=== PATIENT | male | born 1980 | race Caucasian/White ===

== ENCOUNTER 2023-09-29 07:06 | Emergency (ER) | payer BC, SELFPAY ==
[2023-09-29] VITALS (36 sets, daily range): BP systolic 139–195; BP diastolic 95–128; PULSE 69–93; RESP 16–18; TEMP 36.6; O2SAT 92–97; BMI 32.8
--- NOTE | 2023-09-29 07:41 | CRLHL7_ITS ---
For Patients: As a result of the Century Cures Act, medical imaging exams and procedure reports are released immediately into your electronic medical record. You may view this report before your referring provider. If you have questions, please contact your health care provider. Indication: Chest pain Technique: Chest 2 views Comparison: None Findings/Impression: Cardiovascular and mediastinum: Heart size and vasculature are normal in caliber and appearance. Mediastinum is within normal limits. Lungs and pleural spaces: Lungs are clear. No sign of infiltrate or mass. No sign of pleural effusion. No pneumothorax. Bones and soft tissues: No significant findings. Dictated by North Dasilva MD @ 09/29/2023 8:01:25 AM (Electronically Signed)
--- NOTE | 2023-09-29 07:44 | ED_ITS ---
HPI - General Adult General Chief complaint: Shortness of Breath/Dyspnea <Angie Borrego MD - Last Filed: 09/30/23 08:43> Stated complaint: shortness of breath <Angie Borrego MD - Last Filed: 09/30/23 08:43> Time Seen by Provider: 09/29/23 07:30 <Angie Borrego MD - Last Filed: 09/30/23 08:43> Source: patient <Angie Borrego MD - Last Filed: 09/30/23 08:43> Mode of arrival: ambulatory <Angie Borrego MD - Last Filed: 09/30/23 08:43> Limitations: no limitations <Angie Borrego MD - Last Filed: 09/30/23 08:43> History of Present Illness HPI narrative: 43-year-old male with no prior cardiac history presents to the emergency department for evaluation of left-sided chest pain accompanied by shortness of breath and radiation into the left shoulder and arm area that started about 30 minutes prior to arrival. Patient reports that he woke normally and prepped for work. He was working when he initially noted a sensation of burning in his throat. He stopped his activity and attempted to drink some water. With this, the pain then began radiating into the left chest and then into the arm. It was accompanied by shoulder tightness and a sweating sensation. No prior history of similar symptoms. His work is not heavily exertional, just some simple wrenching and light activity. He does smoke. He denies a history of hypertension. Admittedly, he does not go to the doctor in is unaware if he has any history of high cholesterol. 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 He reports a surgery to remove that portion of the diaphragm which improved his dyspnea. He states that he has had some pulmonary function testing showing shortness of breath and was given inhaler that he does not use. This has been a few years. He does continue to smoke. He did not try taking any medication or other interventions prior to coming to the ED today. Currently rating the pain is 4/10, the s weating has improved. No prior stress test or echo. No history of DVT or PE, no anticoagulant use. His only home medication is sildenafil which he has not used in the last few days. Does have a family history of heart disease but not premature ages. Past medical history notable for the cervical rib removal and then subsequent phrenic nerve injury and diaphragm procedure. Smoking and reported COPD not on treatment. Denies other long-term health problems. Denies allergies. ROS is notable for the generalized and cardiac symptoms as described above, otherwise denies times 12 systems. <Angie Borrego MD - Last Filed: 09/30/23 08:43> Related Data Home medications: Home Medications Medication Instructions Recorded Confirmed umeclidinium 62.5 mcg-vilanterol 1 ea inhalation DAILY 09/29/23 09/29/23 25 mcg/actuation powdr for inhalation (Anoro Ellipta) Previous Rx's Medication Instructions Recorded sildenafil 100 mg tablet 50 - 100 mg (0.5 - 1 x 100 mg) PO 05/11/22 QDAY PRN sexual activity #30 tabs <Angie Borrego MD - Last Filed: 09/30/23 08:43> Allergies/adverse reactions: Allergies Allergy/AdvReac Type Severity Reaction Status Date / Time No Known Drug Allergies Allergy Verified 09/29/23 07:13 <Angie Borrego MD - Last Filed: 09/30/23 08:43> [facility] Medical History: Medical History 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) Erectile dysfunction ?N52.9 - Male erectile dysfunction, unspecified (ICD-10) <Angie Borrego MD - Last Filed: 09/30/23 08:43> Social History: Social History Smoking Status: Current every day smoker What tobacco products do you use: cigarettes Smoking packs per day: 1 Smoking cigarettes per day: 20.0 Years smoked: 30 Smoking pack-years: 30.00 Second hand tobacco smoke exposure: No <Angie Borrego MD - Last Filed: 09/30/23 08:43> Exam Const: Vital Signs, click to edit/add: Vital Signs - 24 hr 09/29/23 08:45 09/29/23 08:46 09/29/23 08:51 Temperature Pulse Rate 79 81 83 Respiratory Rate 16 Blood Pressure 154/102 H 159/105 H Pulse Oximetry 94 93 95 09/29/23 08:56 09/29/23 09:00 09/29/23 09:01 Temperature Pulse Rate 81 80 82 Respiratory Rate Blood Pressure 163/105 H 169/109 H Pulse Oximetry 93 93 92 09/29/23 09:08 09/29/23 09:15 09/29/23 09:30 Temperature Pulse Rate 75 76 Respiratory Rate Blood Pressure 170/115 H Pulse Oximetry 95 95 09/29/23 09:31 09/29/23 09:45 09/29/23 10:00 Temperature Pulse Rate 75 72 83 Respiratory Rate 16 Blood Pressure 155/95 H Pulse Oximetry 94 96 96 09/29/23 10:01 09/29/23 10:15 09/29/23 10:30 Temperature Pulse Rate 82 83 79 Respiratory Rate Blood Pressure 155/102 H Pulse Oximetry 96 96 95 09/29/23 10:31 09/29/23 10:45 09/29/23 10:56 Temperature Pulse Rate 80 89 78 Respiratory Rate Blood Pressure 153/96 H 153/104 H Pulse Oximetry 95 95 96 09/29/23 11:00 09/29/23 11:02 09/29/23 11:03 Temperature 97.8 F Pulse Rate 74 69 74 Respiratory Rate 16 Blood Pressure 155/105 H Pulse Oximetry 97 97 97 09/29/23 11:07 09/29/23 11:12 09/29/23 11:15 Temperature Pulse Rate 71 74 73 Respiratory Rate Blood Pressure 163/100 H 156/110 H Pulse Oximetry 95 95 96 09/29/23 11:16 Temperature Pulse Rate 73 Respiratory Rate Blood Pressure 147/98 H Pulse Oximetry 95 <Angie Borrego MD - Last Filed: 09/30/23 08:43> Vital Signs, click to edit/add: Vital Signs - 24 hr 09/29/23 08:45 09/29/23 08:46 09/29/23 08:51 Temperature Pulse Rate 79 81 83 Respiratory Rate 16 Blood Pressure 154/102 H 159/105 H Pulse Oximetry 94 93 95 09/29/23 08:56 09/29/23 09:00 09/29/23 09:01 Temperature Pulse Rate 81 80 82 Respiratory Rate Blood Pressure 163/105 H 169/109 H Pulse Oximetry 93 93 92 09/29/23 09:08 09/29/23 09:15 09/29/23 09:30 Temperature Pulse Rate 75 76 Respiratory Rate Blood Pressure 170/115 H Pulse Oximetry 95 95 09/29/23 09:31 09/29/23 09:45 09/29/23 10:00 Temperature Pulse Rate 75 72 83 Respiratory Rate 16 Blood Pressure 155/95 H Pulse Oximetry 94 96 96 09/29/23 10:01 09/29/23 10:15 09/29/23 10:30 Temperature Pulse Rate 82 83 79 Respiratory Rate Blood Pressure 155/102 H Pulse Oximetry 96 96 95 09/29/23 10:31 09/29/23 10:45 09/29/23 10:56 Temperature Pulse Rate 80 89 78 Respiratory Rate Blood Pressure 153/96 H 153/104 H Pulse Oximetry 95 95 96 09/29/23 11:00 09/29/23 11:02 09/29/23 11:03 Temperature 97.8 F Pulse Rate 74 69 74 Respiratory Rate 16 Blood Pressure 155/105 H Pulse Oximetry 97 97 97 09/29/23 11:07 09/29/23 11:12 09/29/23 11:15 Temperature Pulse Rate 71 74 73 Respiratory Rate Blood Pressure 163/100 H 156/110 H Pulse Oximetry 95 95 96 09/29/23 11:16 Temperature Pulse Rate 73 Respiratory Rate Blood Pressure 147/98 H Pulse Oximetry 95 <Radha Duran MD - Last Filed: 09/29/23 14:13> Documenting provider has reviewed patient's vital signs: yes <Angie waldrop MD - Last Filed: 09/30/23 08:43> Common normals: no apparent distress <Angie Borrego MD - Last Filed: 09/30/23 08:43> General appearance: cooperative, comfortable and well kempt <Angie Borrego MD - Last Filed: 09/30/23 08:43> HENMT: Common normals: normocephalic <Angie Borrego MD - Last Filed: 09/30/23 08:43> Head and scalp: normocephalic <MD Becky Waller Last Filed: 09/30/23 08:43> Mouth: oral and palatal mucosa normal <MD Becky Waller Last Filed: 09/30/23 08:43> Throat: posterior oropharynx normal <MD Becky Waller Last Filed: 09/30/23 08:43> Eye: Common normals: conjunctivae normal <MD Becky Waller Last Filed: 09/30/23 08:43> General eye: normal appearance of both eyes <MD Becky Waller Last Filed: 09/30/23 08:43> Conjunctiva: conjunctiva(e) normal <MD Becky Waller Last Filed: 09/30/23 08:43> Neck & C-Spine: Common normals: no lymphadenopathy <MD Becky Waller Last Filed: 09/30/23 08:43> General: normal visual inspection <MD Becky Waller Last Filed: 09/30/23 08:43> Chest: Common normals: inspection of chest normal and palpation of chest normal <MD Becky Waller Last Filed: 09/30/23 08:43> Resp: Common normals: normal respiratory effort and no use of accessory muscles <MD Becky Waller Last Filed: 09/30/23 08:43> Effort & inspection: able to speak in complete sentences <MD Becky Waller Last Filed: 09/30/23 08:43> Other: Mild expiratory wheeze with normal effort. Good air entry in all lung bernard <MD Becky Waller Last Filed: 09/30/23 08:43> Cardio: Common normals: regular rate, regular rhythm, S1 normal heart sound, S2 normal heart sound and no murmurs <MD Becky Waller Last Filed: 09/30/23 08:43> Rate: regular rate <MD Becky Waller Last Filed: 09/30/23 08:43> Rhythm: regular rhythm <MD Becky Waller Last Filed: 09/30/23 08:43> Heart sounds: S1 normal and S2 normal <MD Becky Waller Last Filed: 09/30/23 08:43> GI: Common normals: Normal to inspection, nondistended, normoactive bowel sounds present, soft to palpation, non-tender, no hepatosplenomegaly and no masses <MD Becky Waller Last Filed: 09/30/23 08:43> Palpation: soft and no hepatosplenomegaly <MD Becky Waller Last Filed: 09/30/23 08:43> Extremity: Common normals: normal to inspection and no pedal edema <MD Becky Waller Last Filed: 09/30/23 08:43> Neuro: Speech: speech normal <MD Becky Waller Last Filed: 09/30/23 08:43> Motor exam: no movement abnormalities noted <MD Becky Waller Last Filed: 09/30/23 08:43> Psych: Appearance: well kempt <MD Becky Waller Last Filed: 09/30/23 08:43> Attitude: engaged <MD Becky Waller Last Filed: 09/30/23 08:43> Activity/motor behavior: appropriate eye contact <MD Becky Waller Last Filed: 09/30/23 08:43> Insight: insight good <MD Becky Waller Last Filed: 09/30/23 08:43> Judgement: judgment good <MD Becky Waller Last Filed: 09/30/23 08:43> Skin: Common normals: no rashes or lesions noted <MD Becky Waller Last Filed: 09/30/23 08:43> General skin exam: no rashes or lesions noted <MD eBcky Waller Last Filed: 09/30/23 08:43> Course Course ED Course: 43-year-old male with chest pain suspicious for acute coronary syndrome. Risk factors include smoking in family history. Likely does have underlying hypertension, unknown if hyperlipidemia. Recommend monitor and storage bin tender, EKG, troponin, chest x-ray and typical labs. Repeat troponin in 2 hours if initial is negative. Will require primary care follow-up regarding elevated blood pressure and would likely benefit from stress test. <Angie Borrego MD - Last Filed: 09/30/23 08:43> 43-year-old male with chest pain suspicious for acute coronary syndrome. Risk factors include smoking in family history. Likely does have underlying hypertension, unknown if hyperlipidemia. Recommend monitor and storage bin tender, EKG, troponin, chest x-ray and typical labs. Repeat troponin in 2 hours if initial is negative. Will require primary care follow-up regarding elevated blood pressure and would likely benefit from stress test. I took over this patient from Dr. Borrego. Initial troponin was 0. I repeated an EKG. He has Q-waves in leads 2 3 and F as well as the 3 through V6, T-waves are commensurate with R-waves, though I do note on the repeat EKG that I did that his T-waves are slightly smaller than on previous. His chest x-ray is unremarkable. His other labs show white blood cell count of 12.3, hemoglobin of 15.8. Coags unremarkable. D-dimer was less than 0.27, electrolytes normal. Blood sugar was 188. COVID negative. Repeat troponin, point of care was 0.14, we jose a lab troponin as well, this was reported to me as 0.91 but in fact is 0.19. He had sublingual nitroglycerin x3 with improvement but not resolution in his pain. I recommended morphine but initially he declined. Ultimately he did agree to morphine and now says he is pain-free. He had aspirin on arrival. On receipt of the elevated 2nd troponin I started heparin, weight based bolus and drip. I paged Cardiology, took approximately 45 minutes to here back but they will accept him at [facility] as an ER to ER transfer. Per cardiology recommendation I have given him rosuvastatin, metoprolol 5 mg IV as well as 25 mg orally for ongoing hypertension. Nicotine patch ordered as well. <Radha Duran MD - Last Filed: 09/29/23 14:13> Vital Signs Vital signs: Initial Vital Signs Temperature 97.9 F 09/29/23 07:08 Temperature Source Temporal Artery Scan 09/29/23 07:08 Pulse Rate 90 09/29/23 07:08 Respiratory Rate 18 09/29/23 07:08 Respiratory Effort Spontaneous, Short of Breath 09/29/23 07:08 Respiratory Depth Normal 09/29/23 07:08 Respiratory Pattern Normal 09/29/23 07:08 Blood Pressure 195/128 H 09/29/23 07:08 Blood Pressure Mean 150 H 09/29/23 07:08 Blood Pressure Position Sitting 09/29/23 07:08 Pulse Oximetry 96 09/29/23 07:08 Oxygen Delivery Method Room Air 09/29/23 07:08 Vital Signs Temperature 97.9 F 09/29/23 07:08 Pulse Rate 90 09/29/23 07:08 Respiratory Rate 18 09/29/23 07:08 Blood Pressure 195/128 H 09/29/23 07:08 Pulse Oximetry 96 09/29/23 07:08 Oxygen Delivery Method Room Air 09/29/23 07:08 Temperature 97.8 F 09/29/23 11:02 Pulse Rate 73 09/29/23 11:16 Respiratory Rate 16 09/29/23 11:02 Blood Pressure 147/98 H 09/29/23 11:16 Pulse Oximetry 95 09/29/23 11:16 Oxygen Delivery Method Room Air 09/29/23 08:31 <Angie Borrego MD - Last Filed: 09/30/23 08:43> Initial Vital Signs Temperature 97.9 F 09/29/23 07:08 Temperature Source Temporal Artery Scan 09/29/23 07:08 Pulse Rate 90 09/29/23 07:08 Respiratory Rate 18 09/29/23 07:08 Respiratory Effort Spontaneous, Short of Breath 09/29/23 07:08 Respiratory Depth Normal 09/29/23 07:08 Respiratory Pattern Normal 09/29/23 07:08 Blood Pressure 195/128 H 09/29/23 07:08 Blood Pressure Mean 150 H 09/29/23 07:08 Blood Pressure Position Sitting 09/29/23 07:08 Pulse Oximetry 96 09/29/23 07:08 Oxygen Delivery Method Room Air 09/29/23 07:08 Vital Signs Temperature 97.9 F 09/29/23 07:08 Pulse Rate 90 09/29/23 07:08 Respiratory Rate 18 09/29/23 07:08 Blood Pressure 195/128 H 09/29/23 07:08 Pulse Oximetry 96 09/29/23 07:08 Oxygen Delivery Method Room Air 09/29/23 07:08 Temperature 97.8 F 09/29/23 11:02 Pulse Rate 73 09/29/23 11:16 Respiratory Rate 16 09/29/23 11:02 Blood Pressure 147/98 H 09/29/23 11:16 Pulse Oximetry 95 09/29/23 11:16 Oxygen Delivery Method Room Air 09/29/23 08:31 <Radha Duran MD - Last Filed: 09/29/23 14:13> Medications Administered Medications: Discontinued Medications Generic Name Dose Route Start Last Admin Trade Name Freq PRN Reason Stop Dose Admin Aspirin 324 mg 09/29/23 07:41 09/29/23 07:52 Aspirin 81 Mg Tab.Chew PO 09/29/23 07:42 324 mg ONCE ONE Administration Heparin Sodium (Porcine) 4,000 unit 09/29/23 09:54 09/29/23 10:05 Heparin 5,000 Unit/0.5 Ml Inj IVP 09/29/23 09:55 4,000 unit ONCE ONE Administration Heparin Sodium/Dextrose 25,000 unit in 500 mls @ 0 mls/hr 09/29/23 10:00 09/29/23 10:05 Heparin IV 1,000 unit/hr .Q0M BHAVANI 20 mls/hr Administration Protocol Per Protocol Metoprolol Succinate 25 mg 09/29/23 10:39 09/29/23 10:48 Metoprolol Succinate (Xl) 25 Mg Tab PO 09/29/23 10:40 25 mg ONCE ONE Administration Metoprolol Tartrate 5 mg 09/29/23 10:36 09/29/23 10:48 Metoprolol Tartrate 1 Mg/Ml Inj IVP 09/29/23 10:37 5 mg ONCE ONE Administration Morphine Sulfate 4 mg 09/29/23 08:57 09/29/23 10:05 Morphine 4 Mg/Ml Inj IVP 09/29/23 08:58 4 mg ONCE ONE Administration Nicotine 1 patch 09/29/23 11:15 09/29/23 11:18 Nicotine 21 Mg Patch TRANSDERMA 1 patch Q24H BHAVANI Administration Nitroglycerin 0.4 mg 09/29/23 07:41 09/29/23 07:54 Nitroglycerin 0.4 Mg Tab.Subl SUBLINGUAL 09/29/23 07:42 0.4 mg ONCE ONE Administration Nitroglycerin 0.4 mg 09/29/23 08:27 09/29/23 08:29 Nitroglycerin 0.4 Mg Tab.Subl SUBLINGUAL 0.4 mg Q5M PRN Administration Rosuvastatin Calcium 10 mg 09/29/23 10:38 09/29/23 10:48 Rosuvastatin Calcium 10 Mg Tablet PO 09/29/23 10:39 10 mg ONCE ONE Administration <Angie Borrego MD - Last Filed: 09/30/23 08:43> Discontinued Medications Generic Name Dose Route Start Last Admin Trade Name Freq PRN Reason Stop Dose Admin Aspirin 324 mg 09/29/23 07:41 09/29/23 07:52 Aspirin 81 Mg Tab.Chew PO 09/29/23 07:42 324 mg ONCE ONE Administration Heparin Sodium (Porcine) 4,000 unit 09/29/23 09:54 09/29/23 10:05 Heparin 5,000 Unit/0.5 Ml Inj IVP 09/29/23 09:55 4,000 unit ONCE ONE Administration Heparin Sodium/Dextrose 25,000 unit in 500 mls @ 0 mls/hr 09/29/23 10:00 09/29/23 10:05 Heparin IV 1,000 unit/hr .Q0M BHAVANI 20 mls/hr Administration Protocol Per Protocol Metoprolol Succinate 25 mg 09/29/23 10:39 09/29/23 10:48 Metoprolol Succinate (Xl) 25 Mg Tab PO 09/29/23 10:40 25 mg ONCE ONE Administration Metoprolol Tartrate 5 mg 09/29/23 10:36 09/29/23 10:48 Metoprolol Tartrate 1 Mg/Ml Inj IVP 09/29/23 10:37 5 mg ONCE ONE Administration Morphine Sulfate 4 mg 09/29/23 08:57 09/29/23 10:05 Morphine 4 Mg/Ml Inj IVP 09/29/23 08:58 4 mg ONCE ONE Administration Nicotine 1 patch 09/29/23 11:15 09/29/23 11:18 Nicotine 21 Mg Patch TRANSDERMA 1 patch Q24H BHAVANI Administration Nitroglycerin 0.4 mg 09/29/23 07:41 09/29/23 07:54 Nitroglycerin 0.4 Mg Tab.Subl SUBLINGUAL 09/29/23 07:42 0.4 mg ONCE ONE Administration Nitroglycerin 0.4 mg 09/29/23 08:27 09/29/23 08:29 Nitroglycerin 0.4 Mg Tab.Subl SUBLINGUAL 0.4 mg Q5M PRN Administration Rosuvastatin Calcium 10 mg 09/29/23 10:38 09/29/23 10:48 Rosuvastatin Calcium 10 Mg Tablet PO 09/29/23 10:39 10 mg ONCE ONE Administration <Radha Duran MD - Last Filed: 09/29/23 14:13> Medical Decision Making Lab Data Labs: Lab Results 09/29/23 09/29/23 09/29/23 Range/Units 07:25 08:58 09:30 WBC 12.28 H (4.50-11.00) K/uL RBC 5.04 (4.30-5.90) m/uL Hgb 15.8 (13.5-17.5) gm/dL Hct 46.7 (37.0-53.0) % MCV 93 (80-100) fL MCH 31 (26-34) pg MCHC 34 (32-36) gm/dL RDW Coeff of Pam 12.5 (11.5-15.5) % Plt Count 167 (140-440) K/uL Neut % (Auto) 72.5 H (42.0-72.0) % Lymph % (Auto) 18.6 L (20-44) % [place] % (Auto) 7.0 (0.0-11.0) % Eos % (Auto) 1.1 (0.0-7.0) % Baso % (Auto) 0.5 (0.0-3.0) % Neut # (Auto) 8.90 H (1.7-7.0) K/uL Lymph # (Auto) 2.30 (0.90-2.90) K/uL [place] # (Auto) 0.90 (0.00-0.90) K/UL Eos # (Auto) 0.10 (0.00-0.50) K/uL Baso # (Auto) 0.10 (0.00-0.30) K/uL Abs Immat Gran (auto) 0.00 (0.00-0.30) K/uL Imm/Tot Granulo (auto) 0.3 % INR 0.85 L (0.91-1.10) APTT 25 (23-33) Seconds D-Dimer Quant (PE/DVT) < 0.27 (0.00-0.50) ug/ml Sodium 137 (135-149) mmol/L Potassium 4.1 (3.6-5.1) mmol/L Chloride 103 (96-114) mmol/L Carbon Dioxide 26 (20-32) mmol/L Anion Gap 8 (7-15) mEq/L BUN 15 (5-24) mg/dL Creatinine 0.9 (0.5-1.5) mg/dL Estimated Creat Clear 110.39 Estimated GFR 107 ml/min Glucose 188 H (60-115) mg/dL Calcium 8.8 (8.4-10.6) mg/dL Total Bilirubin 0.9 (0.1-1.5) mg/dL AST 32 (12-35) U/L ALT 35 (4-50) U/L Alkaline Phosphatase 69 (40-150) U/L Troponin I 0.02 (0.01-0.04) ng/mL C-Reactive Protein 1.1 H (0.5-1.0) mg/dL Total Protein 7.2 (6.0-8.3) g/dL Albumin 4.6 (3.3-5.0) g/dL SARS-CoV-2 (PCR) Negative SARS-CoV-2 (Negative) Influenza Type A (PCR) Negative PCR FLU A (Negative) Influenza Type B (PCR) Negative PCR FLU B (Negative) RSV (PCR) Negative PCR RSV (Negative) POC Troponin I 0.01 0.14 H (0.01-0.04) ng/ml 09/29/23 Range/Units 09:45 WBC (4.50-11.00) K/uL RBC (4.30-5.90) m/uL Hgb (13.5-17.5) gm/dL Hct (37.0-53.0) % MCV (80-100) fL MCH (26-34) pg MCHC (32-36) gm/dL RDW Coeff of Pam (11.5-15.5) % Plt Count (140-440) K/uL Neut % (Auto) (42.0-72.0) % Lymph % (Auto) (20-44) % [place] % (Auto) (0.0-11.0) % Eos % (Auto) (0.0-7.0) % Baso % (Auto) (0.0-3.0) % Neut # (Auto) (1.7-7.0) K/uL Lymph # (Auto) (0.90-2.90) K/uL [place] # (Auto) (0.00-0.90) K/UL Eos # (Auto) (0.00-0.50) K/uL Baso # (Auto) (0.00-0.30) K/uL Abs Immat Gran (auto) (0.00-0.30) K/uL Imm/Tot Granulo (auto) % INR (0.91-1.10) APTT (23-33) Seconds D-Dimer Quant (PE/DVT) (0.00-0.50) ug/ml Sodium (135-149) mmol/L Potassium (3.6-5.1) mmol/L Chloride (96-114) mmol/L Carbon Dioxide (20-32) mmol/L Anion Gap (7-15) mEq/L BUN (5-24) mg/dL Creatinine (0.5-1.5) mg/dL Estimated Creat Clear Estimated GFR ml/min Glucose (60-115) mg/dL Calcium (8.4-10.6) mg/dL Total Bilirubin (0.1-1.5) mg/dL AST (12-35) U/L ALT (4-50) U/L Alkaline Phosphatase (40-150) U/L Troponin I 0.19 H* (0.01-0.04) ng/mL C-Reactive Protein (0.5-1.0) mg/dL Total Protein (6.0-8.3) g/dL Albumin (3.3-5.0) g/dL SARS-CoV-2 (PCR) (Negative) Influenza Type A (PCR) (Negative) Influenza Type B (PCR) (Negative) RSV (PCR) (Negative) POC Troponin I (0.01-0.04) ng/ml <Angie Borrego MD - Last Filed: 09/30/23 08:43> Lab Results 09/29/23 09/29/23 09/29/23 Range/Units 07:25 08:58 09:30 WBC 12.28 H (4.50-11.00) K/uL RBC 5.04 (4.30-5.90) m/uL Hgb 15.8 (13.5-17.5) gm/dL Hct 46.7 (37.0-53.0) % MCV 93 (80-100) fL MCH 31 (26-34) pg MCHC 34 (32-36) gm/dL RDW Coeff of Pam 12.5 (11.5-15.5) % Plt Count 167 (140-440) K/uL Neut % (Auto) 72.5 H (42.0-72.0) % Lymph % (Auto) 18.6 L (20-44) % [place] % (Auto) 7.0 (0.0-11.0) % Eos % (Auto) 1.1 (0.0-7.0) % Baso % (Auto) 0.5 (0.0-3.0) % Neut # (Auto) 8.90 H (1.7-7.0) K/uL Lymph # (Auto) 2.30 (0.90-2.90) K/uL [place] # (Auto) 0.90 (0.00-0.90) K/UL Eos # (Auto) 0.10 (0.00-0.50) K/uL Baso # (Auto) 0.10 (0.00-0.30) K/uL Abs Immat Gran (auto) 0.00 (0.00-0.30) K/uL Imm/Tot Granulo (auto) 0.3 % INR 0.85 L (0.91-1.10) APTT 25 (23-33) Seconds D-Dimer Quant (PE/DVT) < 0.27 (0.00-0.50) ug/ml Sodium 137 (135-149) mmol/L Potassium 4.1 (3.6-5.1) mmol/L Chloride 103 (96-114) mmol/L Carbon Dioxide 26 (20-32) mmol/L Anion Gap 8 (7-15) mEq/L BUN 15 (5-24) mg/dL Creatinine 0.9 (0.5-1.5) mg/dL Estimated Creat Clear 110.39 Estimated GFR 107 ml/min Glucose 188 H (60-115) mg/dL Calcium 8.8 (8.4-10.6) mg/dL Total Bilirubin 0.9 (0.1-1.5) mg/dL AST 32 (12-35) U/L ALT 35 (4-50) U/L Alkaline Phosphatase 69 (40-150) U/L Troponin I 0.02 (0.01-0.04) ng/mL C-Reactive Protein 1.1 H (0.5-1.0) mg/dL Total Protein 7.2 (6.0-8.3) g/dL Albumin 4.6 (3.3-5.0) g/dL SARS-CoV-2 (PCR) Negative SARS-CoV-2 (Negative) Influenza Type A (PCR) Negative PCR FLU A (Negative) Influenza Type B (PCR) Negative PCR FLU B (Negative) RSV (PCR) Negative PCR RSV (Negative) POC Troponin I 0.01 0.14 H (0.01-0.04) ng/ml 09/29/23 Range/Units 09:45 WBC (4.50-11.00) K/uL RBC (4.30-5.90) m/uL Hgb (13.5-17.5) gm/dL Hct (37.0-53.0) % MCV (80-100) fL MCH (26-34) pg MCHC (32-36) gm/dL RDW Coeff of Pam (11.5-15.5) % Plt Count (140-440) K/uL Neut % (Auto) (42.0-72.0) % Lymph % (Auto) (20-44) % [place] % (Auto) (0.0-11.0) % Eos % (Auto) (0.0-7.0) % Baso % (Auto) (0.0-3.0) % Neut # (Auto) (1.7-7.0) K/uL Lymph # (Auto) (0.90-2.90) K/uL [place] # (Auto) (0.00-0.90) K/UL Eos # (Auto) (0.00-0.50) K/uL Baso # (Auto) (0.00-0.30) K/uL Abs Immat Gran (auto) (0.00-0.30) K/uL Imm/Tot Granulo (auto) % INR (0.91-1.10) APTT (23-33) Seconds D-Dimer Quant (PE/DVT) (0.00-0.50) ug/ml Sodium (135-149) mmol/L Potassium (3.6-5.1) mmol/L Chloride (96-114) mmol/L Carbon Dioxide (20-32) mmol/L Anion Gap (7-15) mEq/L BUN (5-24) mg/dL Creatinine (0.5-1.5) mg/dL Estimated Creat Clear Estimated GFR ml/min Glucose (60-115) mg/dL Calcium (8.4-10.6) mg/dL Total Bilirubin (0.1-1.5) mg/dL AST (12-35) U/L ALT (4-50) U/L Alkaline Phosphatase (40-150) U/L Troponin I 0.19 H* (0.01-0.04) ng/mL C-Reactive Protein (0.5-1.0) mg/dL Total Protein (6.0-8.3) g/dL Albumin (3.3-5.0) g/dL SARS-CoV-2 (PCR) (Negative) Influenza Type A (PCR) (Negative) Influenza Type B (PCR) (Negative) RSV (PCR) (Negative) POC Troponin I (0.01-0.04) ng/ml <Radha Duran MD - Last Filed: 09/29/23 14:13> ECG Data Attestation: I personally reviewed and interpreted this ECG as follows: <Angie Borrego MD - Last Filed: 09/30/23 08:43> Prior ECG tracings: not available for review <Angie Borrego MD - Last Filed: 09/30/23 08:43> Interpretation: Normal sinus rhythm, rate of 85. PVC present, otherwise normal axis and intervals. There are some nonspecific ST changes but certainly not diagnostic of ischemia in the septal and lateral leads. No prior comparison EKG available. <Angie Borrego MD - Last Filed: 09/30/23 08:43> Discharge Plan Discharge Clinical Impression: Non-STEMI (non-ST elevated myocardial infarction) <Angie Borrego MD - Last Filed: 09/30/23 08:43> [facility] <Angie Borrego MD - Last Filed: 09/30/23 08:43> Discharge Location: [facility] <Angie Borrego MD - Last Filed: 09/30/23 08:43> Condition: Improved <Angie Borrego MD - Last Filed: 09/30/23 08:43> Prescriptions: No Action Anoro Ellipta 62.5-25 mcg/actuation blister with device 1 ea inhalation DAILY Hold Instructions: ran out of medication sildenafil 100 mg tablet 50 - 100 mg PO QDAY PRN (Reason: sexual activity) Qty: 30 1RF Rx Instructions: administer 30 minutes to 4 hours before activity <Angie Borrego MD - Last Filed: 09/30/23 08:43> Stand Alone Forms: [facility] Info Instructions <Angie Borrego MD - Last Filed: 09/30/23 08:43>
[2023-09-29] MEDS: ASPIRIN 81 MG TAB.CHEW 324 MG PO (07:52)
[2023-09-29] MEDS: NITROGLYCERIN 0.4 MG TAB.SUBL SUBLINGUAL ×3 (07:54→08:29)
[2023-09-29 07:55] LABS: Basophils Percent Auto 0.5 % (0.0-3.0); Eosinophils Percent Auto 1.1 % (0.0-7.0); Hematocrit 46.7 % (37.0-53.0); Hemoglobin* 15.8 gm/dL (13.5-17.5); Immature Granulocytes Pct Auto 0.3 %; Lymphocytes Percent Auto 18.6 % (20-44); Mean Corpuscular HGB Conc 34 gm/dL (32-36); Mean Corpuscular Hemoglobin 31 pg (26-34); Mean Corpuscular Volume 93 fL (80-100); Neutrophils Percent Auto 72.5 % (42.0-72.0); Platelet Count* 167 K/uL (140-440); RDW Coefficient of Variation % 12.5 % (11.5-15.5); Red Blood Count 5.04 m/uL (4.30-5.90); White Blood Count* 12.28 K/uL (4.50-11.00)
[2023-09-29 07:57] LABS: Slide Review Reflex No
[2023-09-29 07:59] LABS: Troponin, Point-of-Care* 0.01 ng/ml (0.01-0.04)
[2023-09-29 08:08] LABS: Albumin* 4.6 g/dL (3.3-5.0); Chloride* 103 mmol/L (96-114); Potassium* 4.1 mmol/L (3.6-5.1); Sodium* 137 mmol/L (135-149)
[2023-09-29 08:10] LABS: Bilirubin Total* 0.9 mg/dL (0.1-1.5); Creatinine* 0.9 mg/dL (0.5-1.5); Est. Creatinine Clearance* 110.39; Estimated Glomerular Filt Rate 107 ml/min
[2023-09-29 08:11] LABS: Alanine Aminotransferase* 35 U/L (4-50); Alkaline Phosphatase* 69 U/L (40-150); Anion Gap 8 mEq/L (7-15); Aspartate Amino Transferase* 32 U/L (12-35); Blood Urea Nitrogen* 15 mg/dL (5-24); Calcium* 8.8 mg/dL (8.4-10.6); Carbon Dioxide* 26 mmol/L (20-32); Glucose* 188 mg/dL (60-115); Total Protein* 7.2 g/dL (6.0-8.3)
[2023-09-29 08:14] LABS: C Reactive Protein* 1.1 mg/dL (0.5-1.0)
[2023-09-29 08:23] LABS: Troponin I* 0.02 ng/mL (0.01-0.04)
[2023-09-29 08:32] LABS: D Dimer Quantitative* < 0.27 ug/ml (0.00-0.50)
[2023-09-29 09:55] LABS: PCR FLU A Negative PCR FLU A (Negative); PCR FLU B Negative PCR FLU B (Negative); PCR RSV Negative PCR RSV (Negative)
[2023-09-29] MEDS: HEPARIN 25,000 UNIT/500 ML BAG 20 UNIT IV (10:05)
[2023-09-29] MEDS: HEPARIN 5,000 UNIT/0.5 ML INJ 4000 UNIT IVP (10:05)
[2023-09-29] MEDS: MORPHINE 4 MG/ML INJ IVP (10:05)
[2023-09-29 10:18] LABS: INR 0.85 (0.91-1.10); Prothrombin Time 12.1 Seconds
[2023-09-29 10:19] LABS: Partial Thromboplastin Time* 25 Seconds (23-33)
[2023-09-29 10:25] LABS: SARS PCR* Negative SARS-CoV-2 (Negative)
[2023-09-29 10:34] LABS: Troponin I* 0.19 ng/mL (0.01-0.04)
[2023-09-29 10:37] LABS: Troponin, Point-of-Care* 0.14 ng/ml (0.01-0.04)
[2023-09-29] MEDS: METOPROLOL TARTRATE 1 MG/ML inj 5 MG IVP (10:48)
[2023-09-29] MEDS: ROSUVASTATIN CALCIUM 10 MG TABLET PO (10:48)
[2023-09-29] MEDS: METOPROLOL SUCCINATE (XL) 25 MG TAB PO (10:48)
--- NOTE | 2023-09-29 11:03 | PC.NURSE ---
Report given to [facility] charge nurse. All questions answered.
[2023-09-29] MEDS: NICOTINE 21 MG PATCH 1 PATCH TRANSDERMA (11:18)
--- NOTE | 2023-09-29 11:18 | ED.NURSE ---
Patient transferred to [facility]. All belongings sent with patient. Nicotine patch applied right before he left.
== END 2023-09-29 11:19 | disposition short-term general hospital (02) ==
PROVIDERS: Family Medicine; Emergency Provider Emergency Medicine
DX: I21.4 Non-ST elevation (NSTEMI) myocardial infarction (principal)
CPT/HCPCS: 36415; 71046; 80053; 84484; 85025; 85379; 85610; 85730; 86140; 87631; 93005; 96374; 96375; 99284; 99285; 99291; A9270; J1644; J2270; S4990

== ENCOUNTER 2023-09-29 11:22 | Outpatient (CLI) | payer BC, SELFPAY | END 2023-09-29 11:23 | disposition home or self-care (01) | LOC: AMB 10-02 08:00 | PROVIDERS: Visit Provider Emergency Medicine | DX: I21.4 Non-ST elevation (NSTEMI) myocardial infarction (principal) | CPT/HCPCS: A0425; A0427 ==

== ENCOUNTER 2023-10-10 10:01 | Outpatient (CLI) | payer BC, SELFPAY ==
--- OUTSIDE RECORDS SUMMARY | 2023-10-10 10:31 | XMS_ITS | Clinical Summary ---
Author Name Unknown Organization [facility] Address [place], [place] [address] Care Team Providers Care Weight Reduction Specialist Name Role Phone Clinic, No Pcp Or Primary Care Provider Unavaila ble Allergies No known active allergies Medications Medication Sig Dispensed Refills Start Date End Date Status albuterol HFA (PROAIR HFA) 90 mcg/actuation inhalerIndications :Hypoxia Inhale 2 Puffs by mouth every 4 hours if needed. 1 Inhaler 12 10/06/2016 Active acetaminophen (TYLENOL EXTRA STRGTH) 500 mg tablet Take 1,000 mg by mouth every 6 hours if needed. Max acetaminophen dose: 4000mg in 24 hrs. 0 Active umeclidinium-vilan terol (ANORO ELLIPTA) 62.5-25 mcg/actuation inhaler Inhale 1 Puff by mouth once daily. 0 08/29/2017 Active sildenafil citrate (VIAGRA) 50 mg tablet Take 50 mg by mouth once daily if needed for Erectile Dysfunction. Take 30min to 4 hours before sexual activity. Max 100mg/24hr 0 Active aspirin chewable 81 mg chewable tabletIndications: NSTEMI (non-ST elevated myocardial infarction) (HC),Coronary artery disease, unspecified vessel or lesion type, unspecified whether angina present, unspecified whether [place] or transplanted heart Chew 1 Tablet (81 mg) by mouth once daily with a meal. 90 Tablet 0 10/01/2023 Active atorvastatin (LIPITOR) 80 mg tabletIndications: Coronary artery disease, unspecified vessel or lesion type, unspecified whether angina present, unspecified whether [place] or transplanted heart Take 1 Tablet (80 mg) by mouth at bedtime. 90 Tablet 0 09/30/2023 Active losartan (COZAAR) 25 mg tabletIndications: Coronary artery disease, unspecified vessel or lesion type, unspecified whether angina present, unspecified whether [place] or transplanted heart Take 1 Tablet (25 mg) by mouth once daily. 90 Tablet 0 10/01/2023 Active metoprolol tartrate (LOPRESSOR) 25 mg tabletIndications: Coronary artery disease, unspecified vessel or lesion type, unspecified whether angina present, unspecified whether [place] or transplanted heart Take 1 Tablet (25 mg) by mouth two times daily. 180 Tablet 0 09/30/2023 Active ticagrelor (BRILINTA) 90 mg tabletIndications: Coronary artery disease, unspecified vessel or lesion type, unspecified whether angina present, unspecified whether [place] or transplanted heart Take 1 Tablet (90 mg) by mouth two times daily. 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 11/25/2016 Encounters Date Type Department Care Team Description 09/29/2023 12:17 PM INTERNATIONAL SOURCING MANAGER - 09/30/2023 2:45 PM INTERNATIONAL SOURCING MANAGER Hospital Encounter [facility] [address] [place], [place] [id number] Katie Alfaro MD Holen, Barrett Keifer, MD [facility], [facility] Hospitalists Of NSTEMI (non-ST elevated myocardial infarction) (HC) (Primary Dx); Coronary artery disease, unspecified vessel or lesion type, unspecified whether angina present, unspecified whether [place] or transplanted heart; S/P drug eluting coronary stent placement Discharge Disposition: Home Self Care 09/29/2023 Telephone [facility] [address] [place], [place] [id number] Melissa Reina MD from Last 3 Months Immunizations Name Administration Dates Next Due DT (Age < 7 years) 05/20/1989 DTP 04/22/1983, 9,1978,1978, 1978 Influenza, IIV3 (Age >=3 years) 09/07/2004 Influenza, IIV4 (=>6mos) MDV 08/17/2017 MMR 02/01/1996,08/10/1993,04/13/1979 Oral Polio Vaccine 04/22/1983,07/11/1979, 978,1978 Td (Age >=7 Years) 02/01/1996,09/26/1994 Tdap 12/11/2009 Family History Medical History Relation Name Comments Suicidality Father Hypertension Maternal Grandfather Hypertension Mother Premature CHD (under age 60) Neg. negative Anesthesia Problem No Family History Clotting disorder No Family History Relation Name Status Comments Father (Age 57) Maternal Grandfather Mother Neg. Alive Social History Tobacco Use Types Packs/Day Years Used Date Smoking Tobacco: Former Cigarettes 1 31 S tarted: 09/26/1992 Smokeless Tobacco: Never Tobacco Cessation:Counseling Given: Not Answered Alcohol Use Standard Drinks/Week Comments Yes 12 (1 standard drink = 0.6 oz pu re alcohol) drinks 4 beers a day PHQ-2 Answer Date Recorded PHQ-2 Score 0 12/21/2018 Social Connections Answer Date Recorded Frequency of Communication with Friends and Fami ly Not on file 09/29/2023 Sex and Gender Information Value Date Recorded Sex Assigned at Not on file Gender Identity Not on file Sexual Orientation Not on file Obstetrics History Last Filed Vital Signs Vital Sign Reading Time Taken Comments Blood Pressure 130/73 09/30/2023 12:15 PM INTERNATIONAL SOURCING MANAGER Pulse 62 09/30/2023 12:15 PM INTERNATIONAL SOURCING MANAGER Temperature 36.6 ??C (97.8 ??F) 09/30/2023 8:42 AM CS T Respiratory Rate 18 09/30/2023 8:42 AM INTERNATIONAL SOURCING MANAGER Oxygen Saturation 97% 09/30/2023 8:42 AM INTERNATIONAL SOURCING MANAGER Inhaled Oxygen Concentration - - Weight 106.6 kg (235 lb) 09/29/2023 12:33 PM INTERNATIONAL SOURCING MANAGER Height 180.3 cm (5' 11) 09/29/2023 12:33 PM INTERNATIONAL SOURCING MANAGER Body Mass Index 32.78 09/29/2023 12:33 PM INTERNATIONAL SOURCING MANAGER Plan of Treatment Upcoming Encounters Date Type Department Care Team (Late st Contact Info) Description 10/11/2023 9:30 AM INTERNATIONAL SOURCING MANAGER Appointment [facility] [address] [place] [address] Health Maintenance Due Date Last Done Comments Pneumococcal series for age 6-64 (1 of 2 - PCV) 01/06/1984 HIV for age 15-65 1993 Hepatitis C screening for ag e 18-79 01/06/1996 BMI (ht and wt on same day) for age 18+ 08/29/2018 08/29/2017, 11/25/2016, 11/16/2016, Additional history exists Tetanus booster 12/12/2019 12/11/2009, 11/24, 02/01/1996, Additional history exists Depression screening for age 12+ 12/22/2019 12/22/19 19, 06/11/2016 Colonoscopy through age 75 2023 COVID-19 vaccine series ( season) 2023 08/26/2021, 01/09/2021, 12/12/2020 Influenza for age 9-49 05/27/2023 08/17/2017, 2003 Lipids for age 45-75 09/30/2028 09/30/2023, 12/12/19 10 Tdap Completed 12/11/2009 Goals Goal Patient Goal Type Associated Problems Recent Progress Patient-Stated? Author BLOOD PRESSURE - MAINTAINS BP less than 140/90 Blood Pressure Rick Mckeon MD Procedures Procedure Name Priority Date/Time Associated Diagnosis Comments SCAN CORRESP-EKG RESULTS 10/06/2023 5:53 PM INTERNATIONAL SOURCING MANAGER EKG 12 LEAD Today 09/30/2023 9:55 AM INTERNATIONAL SOURCING MANAGER SCAN-CARDIAC STRIP 09/30/2023 9: 30 AM INTERNATIONAL SOURCING MANAGER ECHO TTE COMPLETE W CONTRAST Routine 09/30/2023 9:28 AM INTERNATIONAL SOURCING MANAGER TROPONIN T (HS) ONE TIME Early AM 09/30/2023 5:58 AM INTERNATIONAL SOURCING MANAGER LIPID PANEL Early AM 09/30/2023 5:58 AM INTERNATIONAL SOURCING MANAGER BASIC METABOLIC PANEL Early AM 09/30/2023 5:58 AM INTERNATIONAL SOURCING MANAGER CBC W PLT NO DIFF Early AM 09/30/2023 5:5 8 AM INTERNATIONAL SOURCING MANAGER SCAN-CARDIAC STRIP 09/30/2023 12 :46 AM INTERNATIONAL SOURCING MANAGER APTT Timed 09/29/2023 7:17 PM INTERNATIONAL SOURCING MANAGER SCAN-CARDIAC STRIP 09/29/2023 6: 09 PM INTERNATIONAL SOURCING MANAGER HEMOGLOBIN A1C MONSERRAT 09/29/2023 5:20 PM INTERNATIONAL SOURCING MANAGER TROPONIN T (HS) ONE TIME Timed 09/29/2023 5:20 PM INTERNATIONAL SOURCING MANAGER HCHG ACTIVATED CLOTTING TM CV Timed 09/29/2023 3:30 PM INTERNATIONAL SOURCING MANAGER HCHG ACTIVATED CLOTTING TM CV Timed 09/29/2023 3:18 PM INTERNATIONAL SOURCING MANAGER HCHG ACTIVATED CLOTTING TM CV Timed 09/29/2023 3:06 PM INTERNATIONAL SOURCING MANAGER HCHG ACTIVATED CLOTTING TM CV Timed 09/29/2023 2:55 PM INTERNATIONAL SOURCING MANAGER CVL CORONARY ANGIOGRAM POSS PCI Routine 09/29/2023 2:51 PM INTERNATIONAL SOURCING MANAGER XR CHEST 1 VIEW PORTABLE Today 09/29/2023 1:23 PM INTERNATIONAL SOURCING MANAGER HEMOGLOBIN A1C SCREENING MONSERRAT 09/29/2023 1:01 PM INTERNATIONAL SOURCING MANAGER CBC W PLT NO DIFF STAT 09/29/2023 1:0 1 PM INTERNATIONAL SOURCING MANAGER HEPATIC FUNCTION PANEL [place] 09/29/2023 12:52 PM INTERNATIONAL SOURCING MANAGER BASIC METABOLIC PANEL [place] 09/29/2023 12:52 PM INTERNATIONAL SOURCING MANAGER PROTIME-INR STAT 09/29/2023 12:52 PM INTERNATIONAL SOURCING MANAGER APTT STAT 09/29/2023 12:52 PM INTERNATIONAL SOURCING MANAGER TROPONIN T (HS) ACUTE W/2HR REFLEX STAT 09/29/2023 12:52 PM INTERNATIONAL SOURCING MANAGER EKG 12 LEAD STAT 09/29/2023 12:40 PM INTERNATIONAL SOURCING MANAGER SCAN-OPERATIVE/PROCE DURE REPORT 09/29/2023 12:00 AM INTERNATIONAL SOURCING MANAGER from Last 3 Months Results * SCAN CORRESP-EKG RESULTS (10/06/2023 5:53 PM INTERNATIONAL SOURCING MANAGER) Narrative 10/06/2023 5:53 PM INTERNATIONAL SOURCING MANAGER Ordered by an unspecified provider. Other Clinical Staff OTHER * ECG TODAY (09/30/2023 9:55 AM INTERNATIONAL SOURCING MANAGER) Only the most recent of2 resultswithin the time period is included. Interpretation Normal sinus rhythm Non-specific intra-ventric ular conduction delay Borderline ECG When compared with ECG of 29-SEP-2023 12:40, T wave amplitude has decreased in Anterior leads BEYOND NOW Ventricular Rate 68 BPM BEYOND NOW Atrial Rate 68 BPM BEYOND NOW P-R Interval 126 ms BEYOND NOW QRS Duration 120 ms BEYOND NOW QT 366 ms BEYOND NOW QTc 389 ms BEYOND NOW P Plover degrees BEYOND NOW R Plover 80 degrees BEYOND NOW T Plover 60 degrees BEYOND NOW 09/30/2023 9:55 AM INTERNATIONAL SOURCING MANAGER 09/30/2023 4:44 PM INTERNATIONAL SOURCING MANAGER Patricia Haney MD EKG ORD BEYOND NOW [place], [place] * SCAN-CARDIAC STRIP (09/30/2023 9:30 AM INTERNATIONAL SOURCING MANAGER) Scanner OTHER * ECHO TTE COMPLETE W CONTRAST (09/30/2023 9:28 AM INTERNATIONAL SOURCING MANAGER) AORTIC VALVE MEAN PG 6 mmHg EJECTION FRACTION 52 % LVEDD 5.4 cm EJECTION FRACTION 45 - 50% Anatomical Region Laterality Modality Ultrasound 09/30/2023 8:03 AM INTERNATIONAL SOURCING MANAGER Narrative 09/30/2023 1:29 PM INTERNATIONAL SOURCING MANAGER ECHOCARDIOGRAM MARYA BARTON ? Accession#: ?? [id number] : ?1980 43 years Study Date: ?? 09/30/2023 8:03:18 AM Gender: M ?BP: ? 138/85 mmHg Height: 180.34 cm ?BSA: ?2.26 m? ? ? Weight: 106.60 kg ?Tech: ? LFM ? Referring MD: PATRICIA TOSCANO [facility] Site: ? [facility] Reading Location: [facility] Patient Location: Inpatient. Procedure: 2D w/ Contrast, Spectral Doppler and Color Doppler. Indication for study: DE Cardiac Rhythm: Regular.Study quality: Fair. Final Impressions: 1. Normal LV size, normal wall thickness, mildly reduced global systolic function with an estimated EF of 45 - 50%. 2. Entire apex is abnormal. 3. Echo contrast was administered to enhance visualization of all left ventricular segments. 4. Right ventricular cavity size is mildly enlarged, global systolic RV function is borderline reduced. 5. Mildly enlarged left atrium. 6. The aortic valve is normal and trileaflet, no stenosis and no regurgitation. 7. The mitral valve is sclerotic, trace mitral regurgitation. 8. Tricuspid valve is normal. 9. No pericardial effusion. Chamber Sizes and Function Normal left ventricular size, normal wall thickness, mildly reduced global systolic function with an estimated EF of 45 - 50%. Left atrial size is mildly enlarged. Right ventricular cavity size is mildly enlarged, global systolic RV function is borderline reduced. The right atrium is normal. Right atrial volume index is 19 ml/m? ? ?. The pulmonary artery is not well visualized. The sinus of Valsalva is normal sized. The ascending aorta is not well visualized. The entire apex is hypokinetic. All remaining scored segments are normal. Valves, RV Pressures and Diastolic Function The aortic valve is normal in structure and trileaflet, no stenosis and no regurgitation. The mitral valve is sclerotic, trace mitral regurgitation. Normal diastolic function. The tricuspid valve is normal in structure. Tricuspid regurgitation is trace regurgitation. The pulmonic valve is normal. No pulmonary regurgitation. Masses, Effusion, Shunts There is no pericardial effusion. The inferior vena cava is dilated, respiratory size variation greater than 50%. Interatrial septum is not well visualized. MEASUREMENTS AND CALCULATIONS 2-D Measurements and LV Function: LVID (d) 5.4 cm LV FS% (2D) ?? 31 % LVID (s) 3.7 cm LVOT diameter 2.2 cm IVS (d) ??0.9 cm HR ?82 bpm LVPW (d) 0.9 cm LA Vol index ??45 ml/m2 Ao Sinus 3.2 cm RA Vol index ??19 ml/m2 Diastology: Mitral ?Tissue Doppler E Peak 0.7 m/s ??e', Septum ? 0.10 m/s A Peak 0.8 m/s ??e', Lateral ?0.10 m/s E/A ?0.8 ?E/e' Average ?? 6.68 DT ? 121 msec Aortic Valve: Vmax ? 1.7 m/s ??DAMON (V) ?? 3.19 cm? ? ? VTI ?0.31 m ?? DAMON (I) ?? 2.95 cm? ? ? LVOT V max 1.4 m/s ??Max PG ?11 mmHg LVOT VTI ?? 0.24 m ?? Mean PG ?? 6 mmHg SV ? 91 ml ?Dim Index 0.78 SV index ?? 40 ml/m? ? ? CO ?7.4 l/min ?CI ?3.3 l/min/m? ? ? Mitral Valve: MVA ?6.3 cm? ? ? MV P 1/2 35 msec Tricuspid Valve and estimated PA pressures: TAPSE 3.3 cm Contrast documentation: 2 ml diluted Definity, lot #[id number], [facility]# [id number] was administered peripherally to enhance visualization of all left ventricular segments. . This study was interpreted by an [facility] accredited facility. ??Final ?? Procedure Note Zoraida Glaser, [facility] - 09/30/2023 ECHOCARDIOGRAM MARYA BARTON : 1980 43 years Study Date: 09/30/2023 8:03:18 AM Gender: M BP: 138/85 mmHg Height: 180.34 cm BSA: 2.26 m? ? ? Weight: 106.60 kg Tech: [facility] Referring MD: PATRICIA HANEY Site: [facility] Reading Location: [facility] Patient Location: Inpatient. Procedure: 2D w/ Contrast, Spectral Doppler and Color Doppler. Indication for study: DE Cardiac Rhythm: Regular.Study quality: Fair. Final Impressions: 1. Normal LV size, normal wall thickness, mildly reduced global systolicfunction with an estimated EF of 45 - 50%. 2. Entire apex is abnormal. 3. Echo contrast was administered to enhance visualization of all leftventricular segments. 4. Right ventricular cavity size is mildly enlarged, global systolic RVfunction is borderline reduced. 5. Mildly enlarged left atrium. 6. The aortic valve is normal and trileaflet, no stenosis and noregurgitation. 7. The mitral valve is sclerotic, trace mitral regurgitation. 8. Tricuspid valve is normal. 9. No pericardial effusion. Chamber Sizes and Function Normal left ventricular size, normal wall thickness, mildly reduced globalsystolic function with an estimated EF of 45 - 50%. Left atrial size ismildly enlarged. Right ventricular cavity size is mildly enlarged, globalsystolic RV function is borderline reduced. The right atrium is normal.Right atrial volume index is 19 ml/m? ? ?. The pulmonary artery is not wellvisualized. The sinus of Valsalva is normal sized. The ascending aorta isnot well visualized. The entire apex is hypokinetic. All remaining scoredsegments are normal. Valves, RV Pressures and Diastolic Function The aortic valve is normal in structure and trileaflet, no stenosis and noregurgitation. The mitral valve is sclerotic, trace mitral regurgitation.Normal diastolic function. The tricuspid valve is normal in structure.Tricuspid regurgitation is trace regurgitation. The pulmonic valve isnormal. No pulmonary regurgitation. Masses, Effusion, Shunts There is no pericardial effusion. The inferior vena cava is dilated,respiratory size variation greater than 50%. Interatrial septum is notwell visualized. MEASUREMENTS AND CALCULATIONS 2-D Measurements and LV Function: LVID (d) 5.4 cm LV FS% (2D) 31 % LVID (s) 3.7 cm LVOT diameter 2.2 cm IVS (d) 0.9 cm HR 82 bpm LVPW (d) 0.9 cm LA Vol index 45 ml/m2 Ao Sinus 3.2 cm RA Vol index 19 ml/m2 Diastology: Mitral Tissue Doppler E Peak 0.7 m/s e', Septum 0.10 m/s A Peak 0.8 m/s e', Lateral 0.10 m/s E/A 0.8 E/e' Average 6.68 DT 121 msec Aortic Valve: Vmax 1.7 m/s DAMON (V) 3.19 cm? ? ? VTI 0.31 m DAMON (I) 2.95 cm? ? ? LVOT V max 1.4 m/s Max PG 11 mmHg LVOT VTI 0.24 m Mean PG 6 mmHg SV 91 ml Dim Index 0.78 SV index 40 ml/m? ? ? CO 7.4 l/min CI 3.3 l/min/m? ? ? Mitral Valve: MVA 6.3 cm? ? ? MV P 1/2 35 msec Tricuspid Valve and estimated PA pressures: TAPSE 3.3 cm Contrast documentation: 2 ml diluted Definity, lot #[id number], [facility]#[id number] was administered peripherally to enhance visualization of allleft ventricular segments. . This study was interpreted by an [facility] accredited facility. Final Patricia Haney MD ECHO ORD * (ABNORMAL) TROPONIN T (HS) ONE TIME (09/30/2023 5:58 AM INTERNATIONAL SOURCING MANAGER) Only the most recent of2 resultswithin the time period is included. [facility] TROPONIN T HS 420(H) 6-15 ng/L ng/L 09/30/2023 6:50 AM INTERNATIONAL SOURCING MANAGER [facility] Blood BLOOD SPECIMEN / Unknown Venipuncture / Unknown 09/30/2023 5:58 AM INTERNATIONAL SOURCING MANAGER 09/30/2023 6:04 AM INTERNATIONAL SOURCING MANAGER [facility] - 09/30/2023 6:50 AM INTERNATIONAL SOURCING MANAGER hs-cTnT (Elecsys Troponin T Gen 5) concentration (s) above the sex-specific 99th percentile (16 ng/L or greater for males or 11 ng/L or greater for females) are indicative of myocardial injury. If initial hs-cTnT <=100 ng/L at presentation, a 0h/2h ABSOLUTE (ng/L) delta change (rising or falling) of >=10 ng/L suggests a significant change, whereas a 0h/2h delta change <=3 ng/L suggests no significant change. If initial hs-cTnT >100 ng/L at presentation, a 0h/2h/ RELATIVE (percent, %) delta change of 20% is suggested to distinguish patients with acute vs. chronic myocardial injury. There are multiple etiologies that can cause hs-cTnT increases above the 99th percentile (myocardial injury) other than acute myocardial infarction. Clinical context and careful clinical evaluation are critical for diagnosis and risk-stratification. The diagnosis of acute myocardial infarction requires a rising and/or falling pattern in hs-cTnT concentrations with at least one value above the sex-specific 99th percentile PLUS at least one of the following clinical criteria: ischemic symptoms, new or presumed new significant ST-T wave changes or new LBBB, development of pathological Q waves, imaging evidence of new loss of viable myocardium or new regional wall motion abnormality, or identification of intracoronary atherothrombosis or an acute angiographic culprit on coronary angiography. In appropriate low-risk patients with a non-ischemic electrocardiogram without active chest pain with a symptom onset >3-hours without recurrence, a single initial hs-cTnT<6 ng/L identifies patient with a very low risk in emergency department patient population. Patricia Haney MD CHEMISTRY [facility] [address] [place] [address], * (ABNORMAL) CBC W PLT NO DIFF (09/30/2023 5:58 AM INTERNATIONAL SOURCING MANAGER) Only the most recent of2 resultswithin the time period is included. WHITE BLOOD COUNT 15.3(H) 4.5 - 11.0 thou/cu mm 09/30/2023 6:08 AM [facility] RED BLOOD COUNT 4.46 4.30 - 5.90 mil/cu mm 09/30/2023 6:08 AM [facility] HEMOGLOBIN 13.7 13.5 - 17.5 g/dL 09/30/2023 6:08 AM [facility] HEMATOCRIT 40.5 37.0 - 53.0 % 09/30/2023 6:08 AM [facility] MCV 91 80 - 100 fL 09/30/2023 6:08 AM [facility] MCH 30.7 26.0 - 34.0 pg 09/30/2023 6:08 AM [facility] MCHC 33.8 32.0 - 36.0 g/dL 09/30/2023 6:08 AM [facility] RDW 12.7 11.5 - 15.5 % 09/30/2023 6:08 AM [facility] PLATELET COUNT 148 140 - 440 thou/cu mm 09/30/2023 6:08 AM [facility] MPV 10.3 6.5 - 11.0 fL 09/30/2023 6:08 AM [facility] NRBC 0.0 % 09/30/2023 6:08 AM [facility] ABS NRBC 0.0 thou /cu mm 09/30/2023 6:08 AM [facility] Blood BLOOD SPECIMEN / Unknown Venipuncture / Unknown 09/30/2023 5:58 AM INTERNATIONAL SOURCING MANAGER 09/30/2023 6:04 AM INTERNATIONAL SOURCING MANAGER Preet Flynn MD HEMATOLOGY [facility] [address] [place] [address], [place] * Lipid Panel AM (09/30/2023 5:58 AM INTERNATIONAL SOURCING MANAGER) CHOLESTEROL,TOTAL 189 100 - 199 mg/dL 09/30/2023 6:50 AM INTERNATIONAL SOURCING MANAGER [facility] Comment: Cholesterol, Total Reference Ranges Desirable <200 mg/dL Borderline 200-239 mg/dL High >=240 mg/dL TRIGLYCERIDES 69 <150 mg/dL 09/30/2023 6:50 AM INTERNATIONAL SOURCING MANAGER [facility] HDL CHOLESTEROL 53 >40 mg/dL 6:50 AM INTERNATIONAL SOURCING MANAGER [facility] NON-HDL CHOLESTEROL 136 <145 mg/dl 09/30/2023 6:50 AM INTERNATIONAL SOURCING MANAGER [facility] CHOL/HDL RATIO 3.57 <4.50 09/30/2023 6:50 AM INTERNATIONAL SOURCING MANAGER [facility] LDL CHOLESTEROL 122 <=130 mg/dL 09/30/2023 6:50 AM INTERNATIONAL SOURCING MANAGER [facility] VLDL CHOLESTEROL 14 <=30 mg/dL 09/30/2023 6:50 AM INTERNATIONAL SOURCING MANAGER [facility] PROVIDER ORDERED STATUS RANDOM 09/30/2023 6:50 AM INTERNATIONAL SOURCING MANAGER [facility] Blood BLOOD SPECIMEN / Unknown Venipuncture / Unknown 09/30/2023 5:58 AM INTERNATIONAL SOURCING MANAGER 09/30/2023 6:04 AM INTERNATIONAL SOURCING MANAGER Preet Flynn MD CHEMISTRY [facility] [address] [place] [address], [place] * (ABNORMAL) BASIC METABOLIC PANEL (09/30/2023 5:58 AM INTERNATIONAL SOURCING MANAGER) Only the most recent of2 resultswithin the time period is included. SODIUM 141 136 - 145 mmol/L 09/30/2023 6:50 AM [facility] POTASSIUM 4.6 3.5 - 5.1 mmol/L 09/30/2023 6:50 AM [facility] CHLORIDE 106 98 - 107 mmol/L 09/30/2023 6:50 AM [facility] CO2,TOTAL 26 22 - 29 mmol/L 09/30/2023 6:50 AM [facility] ANION GAP 9 5 - 18 09/30/2023 6:50 AM [facility] GLUCOSE 115(H) 70 - 99 mg/dL 09/30/2023 6:50 AM [facility] CALCIUM 8.9 8.6 - 10.0 mg/dL 09/30/2023 6:50 AM [facility] BUN 11 6 - 20 mg/dL 09/30/2023 6:50 AM [facility] CREATININE 0.80 0.70 - 1.20 mg/dL 09/30/2023 6:50 AM [facility] BUN/CREAT RATIO 14 10 - 20 6:50 AM [facility] eGFR >90 >90 mL/min/1.7 3m2 09/30/2023 6:50 AM [facility] Comment:As of 2021, eG FR is calculated by the CKD-EPI creatinine equation without race adjustment. ??eGFR can be influenced by muscle mass, exercise, and diet. ??The reported eGFR is an estimation only and is only applicable if the renal function is stable. Blood BLOOD SPECIMEN / Unknown Venipuncture / Unknown 09/30/2023 5:58 AM INTERNATIONAL SOURCING MANAGER 09/30/2023 6:04 AM [facility] Preet Flynn MD CHEMISTRY [facility] [address] [place] [address], * SCAN-CARDIAC STRIP (09/30/2023 12:46 AM INTERNATIONAL SOURCING MANAGER) Scanner OTHER * APTT (09/29/2023 7:17 PM INTERNATIONAL SOURCING MANAGER) Only the most recent of2 resultswithin the time period is included. APTT 36 29 - 36 sec 09/29/2023 8:09 PM INTERNATIONAL SOURCING MANAGER [facility] Blood BLOOD SPECIMEN / Unknown Butterfly / Unknown 09/29/2023 7:17 PM INTERNATIONAL SOURCING MANAGER 09/29/2023 7:45 PM INTERNATIONAL SOURCING MANAGER Narrative [facility] - 09/29/2023 8:09 PM INTERNATIONAL SOURCING MANAGER Therapeutic Range: 57-100 seconds Katie Alfaro MD HEMATOLOGY [facility] [address] [place] [address], * SCAN-CARDIAC STRIP (09/29/2023 6:09 PM INTERNATIONAL SOURCING MANAGER) Scanner OTHER * Screening hemoglobin A1c AM (order if not done w/in 3 mos) (09/29/2023 5:20 PM INTERNATIONAL SOURCING MANAGER) HEMOGLOBIN A1C MONITORING (POCT) 5.8 <=6.4 % 09/29/2023 7:56 PM INTERNATIONAL SOURCING MANAGER [facility] Blood BLOOD SPECIMEN / Unknown Butterfly / Unknown 09/29/2023 5:20 PM INTERNATIONAL SOURCING MANAGER 09/29/2023 5:34 PM INTERNATIONAL SOURCING MANAGER Narrative [facility] - 09/29/2023 7:56 PM INTERNATIONAL SOURCING MANAGER ? (<=6.9%) ? Indicates good control ? (7.0% to 7.9%) ? Indicates fair control ? (>=8.0%) ? Indicates poor control ?? NOTE: ??These thresholds are guidelines and ?individual targets may vary. Falsely low levels may be seen with: Recent Transfusion, Recent Significant Blood Loss, Hemolytic Diseases, or Falsely elevated levels may be seen with: Untreated Anemias, Splenectomy ? Patricia Haney MD CHEMISTRY Performing Organization Address [facility] Co de Phone Number [facility] [address] [place] [address], * (ABNORMAL) ACTIVATED CLOTTING TIME [id number] ACT (09/29/2023 3:30 PM INTERNATIONAL SOURCING MANAGER) Only the most recent of4 resultswithin the time period is included. [facility] ACTIVATED CLOTTING TIME, POCT 271(H) 74 - 125 sec 09/29/2023 3:53 PM INTERNATIONAL SOURCING MANAGER [facility] Blood BLOOD SPECIMEN / Unknown 09/29/2023 3:30 PM INTERNATIONAL SOURCING MANAGER 09/29/2023 3:53 PM INTERNATIONAL SOURCING MANAGER Katie Alfaro MD HEMATOLOGY Performing Organization Address [facility] de Phone Number [facility] [address] [place] [address], [place] * CVL CORONARY ANGIOGRAM POSS PCI (09/29/2023 2:51 PM INTERNATIONAL SOURCING MANAGER) Anatomical Region Laterality Modality Other 09/29/2023 2:51 PM INTERNATIONAL SOURCING MANAGER Narrative Transcriptions Nate Aparicio MD - 09/29/2023 3:39 PM CST [facility] Cardiac Catheterization Report Name: MARYA BARTON Event Date: 09/29/2023 14:51 Excellian ID #: [id number] NELA #: [id number] Diagnostic Physician: NATE APARICIO [facility] [place] Interventional Physician: NATE APARICIO [facility] [place] Referring Physician: Cal Date: 1980 Gender: Male Age: 43 Summary/Conclusions INDICATIONS - NSTEMI DIAGNOSTIC SUMMARY ? 90% stenosis in the Proximal LAD at takeoff of large diagonal branch ? The CX and OMs are patent with mild disease and supplies PLB ? The RCA is small, supplying only the PDA and patent ? The RFA was closed with a Perclose INTERVENTION ? 2.5mm x 12mm Balloon, 4.5mm x 12mm NC Balloon (20 jerrell), 4mm x 15mmDrug Eluting Stent, and IVUS to 90% Proximal LAD, post stenosis 0% Consent & Blair Protocol The risks, benefits, and alternatives of the procedure were discussed withthe patient and written informed consent was obtained. Blair protocol was followed. TIME OUT conducted just prior tostarting procedure confirmed patient identity, site/side, procedure,patient position, and availability of correct equipment and implants (ifapplicable). Staff Name Title NATE APARICIO Diagnostic Hr Advisor Caridad Bosch Fellow Charo Wynne RN Nurse Sharda Patterson RN Rosalee Quesada CVT Monitor Hallquist, Dandy CVT Monitor Peter, Uche CVT Financial Economist Dayana, Dana CVT Scrub Hernandez, Renzo CVT Financial Economist Malorie Summersa RT(R) Financial Economist Yasmine Da Silva RN Nurse NATE APARICIO Surgical Endoscopist Procedures ? Ultrasound Guided Vascular Access ? Femoral Angio for Possible Closure Device ? Coronary Angiogram ? Femoral Closure Device ? Stent Placement, Drug Eluting [PCI] ? Coronary Ultrasound Diagnostic Findings * Left Anterior Descending ? 90% stenosis in the Proximal LAD. The lesion has a MARIAM flow of 1. Lesion Information Lesion # Vessel Segment Lesion Length Lesion Details 1 Proximal LAD Hemodynamics State: Baseline Pressures (mmHg) Site Systolic Diastolic End Diastolic A Wave V Wave Mean AO 153 95 121 Interventional Results * Left Anterior Descending ? Intervention to the Proximal LAD 90% lesion with a final stenosis of0% using a 2.5mm x 12mm Balloon, 4.5mm x 12mm Balloon, 4mm x 15mm DrugEluting Stent, and a IVUS. The final MARIAM flow was 3. Interventional Devices Lesion # Vessel Segment Type Name Max Pressure 1 Proximal LAD Balloon BLLN EUPHORA RX [id number] 1 Proximal LAD Balloon BLLN EUPHORA NC RX 4.5MM X 12MM 1 Proximal LAD Drug Eluting Stent JAVIER CONY Wyckoff RX [id number] 1 Proximal LAD IVUS CATH IVUS [facility] Procedure Details Estimated Blood Loss: < 30 ml Specimen Collected: None Level of Sedation Achieved: Mild Procedure Start: 14:51 Procedure End: 15:28 Procedure Time: 37 min Fluoroscopy Time: 9.6 min Cumulative Air Kerma: 737 mGy DAP: 3400 uGy/M2 Contrast: Omnipaque (low-osmolar), 85 ml Physiologic Data Weight: 106.6 kg BSA: 2.26 m2 Vascular Access Time Access Sheath Size 14:52 Right Femoral Artery, sheath inserted Complications ? No Complications Medications Ordered and Administered Start Time Stop Time Medication Dose Units Route Ordered By Given By 14:51 Fentanyl 50 mcg IV SabineNate Mellina RN 14:51 Versed 1 mg IV SabineNate Mellina RN 14:52 1% Lidocaine 20 ml Subcut SabineNate olivares Muhammad Saad 14:56 Nitroglycerin 200 mcg IC Nate Aparicio Michelle CVT 14:59 Heparin 5000 units IV SabineNate Mellina RN 15:03 Ticagrelor/Brilinta 180 mg PO SabineNate Mellina RN 15:10 Heparin 3000 units IV SabineNate Mellina RN 15:16 Nitroglycerin 200 mcg IC SabineNate, Dana CVT 15:19 Fentanyl 25 mcg IV Sabine, Yasmine Villela RN 15:19 Versed 0.5 mg IV SabineNate Mellina RN 15:23 Heparin 2000 units IV SabineNate Mellina RN 15:25 Hydralazine 10 mg IV SabineNate Mellina RN 15:27 Fentanyl 25 mcg IV SabineNate Mellina RN 15:27 Versed 0.5 mg IV Sabine, Radha Hassan RT(R) I personally monitored the patient?s conscious sedation during theprocedure. Conscious sedation starts with the first sedation medication dose ofFentanyl or Versed and ends when the procedure is completed, the patientis stable for recovery status, and the physician or other qualified healthcare professional providing the sedation ends personal [id number] time with the patient. The medications listed above were verbally ordered by me and read back tome as documented above. Refer to the procedure log report for additional case details. electronically signed on 09/29/2023 3:39:58 PM with status of Final Nate Aparicio MD [facility] [address] [place] [address] (p) [phone](f) Provider Referring CV IMAGING * XR Chest Portable 1 View (09/29/2023 1:23 PM INTERNATIONAL SOURCING MANAGER) Anatomical Region Laterality Modality HEART, THORAX, CHEST Digital Rad iography 09/29/2023 5:16 PM INTERNATIONAL SOURCING MANAGER Impressions 09/29/2023 5:16 PM INTERNATIONAL SOURCING MANAGER The lungs are clear. No signs of pleural fluid or pneumothorax. Normal heart size and vascular pattern. Overlying advanced manufacturing associate leads are present Dictated by Abner Bansal MD @ Sep ??4 2023 ??5:16PM (Electronically Signed) Pediatric and Body Radiology [email or web address] ?? Narrative 09/29/2023 5:16 PM INTERNATIONAL SOURCING MANAGER For Patients: ??As a result of the Cures Act, medical imaging exams and procedure reports are released immediately into your electronic medical record. ??You may view this report before your referring provider. ??If you have questions, please contact your health care provider. INDICATION: Chest pain. TECHNIQUE: Chest single view. Procedure Note Abner Bansal MD - 09/29/2023 For Patients: As a result of the Cures Act, medical imagingexams and procedure reports are released immediately into your electronicmedical record. You may view this report before your referring provider.If you have questions, please contact your health care provider. INDICATION: Chest pain. TECHNIQUE: Chest single view. IMPRESSION: The lungs are clear. No signs of pleural fluid or pneumothorax. Normal heart size and vascular pattern. Overlying advanced manufacturing associate leads are present Dictated by Abner Bansal MD @ Sep 29 2023 5:16PM (Electronically Signed) Pediatric and Body Radiology [email or web address] Preet Flynn MD GENERAL IMAGING * Screening hemoglobin A1c FOR ADD ON (09/29/2023 1:01 PM INTERNATIONAL SOURCING MANAGER) HEMOGLOBIN A1C SCREENING 5.8 <=6.4 % 09/29/2023 3:33 PM INTERNATIONAL SOURCING MANAGER [facility] Blood BLOOD SPECIMEN / Unknown Venipuncture / Unknown 09/29/2023 1:01 PM INTERNATIONAL SOURCING MANAGER 09/29/2023 1:08 PM INTERNATIONAL SOURCING MANAGER Narrative [facility] - 09/29/2023 3:33 PM INTERNATIONAL SOURCING MANAGER ? (<5.7%) ?Normal ? (5.7% to 6.4%) ? Indicates prediabetes ? (>=6.5%) ? Confirms diabetes Falsely low levels may be seen with: Recent Transfusion, Recent Significant Blood Loss, Hemolytic Diseases, or Falsely elevated levels may be seen with: Untreated Anemias, Splenectomy Preet Flynn MD CHEMISTRY [facility] [address] [place] [id number] [[email or web address]] * (ABNORMAL) TROPONIN T (HS) ACUTE W/2HR REFLEX (09/29/2023 12:52 PM INTERNATIONAL SOURCING MANAGER) [facility] TROPONIN T HS 169(H) 6-15 ng/L ng/L 09/29/2023 1:44 PM INTERNATIONAL SOURCING MANAGER [facility] Blood BLOOD SPECIMEN / Unknown Venipuncture / Unknown 09/29/2023 12:52 PM INTERNATIONAL SOURCING MANAGER 09/29/2023 1:08 PM INTERNATIONAL SOURCING MANAGER [facility] - 09/29/2023 1:44 PM INTERNATIONAL SOURCING MANAGER hs-cTnT (Elecsys Troponin T Gen 5) concentration (s) above the sex-specific 99th percentile (16 ng/L or greater for males or 11 ng/L or greater for females) are indicative of myocardial injury. If initial hs-cTnT <=100 ng/L at presentation, a 0h/2h ABSOLUTE (ng/L) delta change (rising or falling) of >=10 ng/L suggests a significant change, whereas a 0h/2h delta change <=3 ng/L suggests no significant change. If initial hs-cTnT >100 ng/L at presentation, a 0h/2h/ RELATIVE (percent, %) delta change of 20% is suggested to distinguish patients with acute vs. chronic myocardial injury. There are multiple etiologies that can cause hs-cTnT increases above the 99th percentile (myocardial injury) other than acute myocardial infarction. Clinical context and careful clinical evaluation are critical for diagnosis and risk-stratification. The diagnosis of acute myocardial infarction requires a rising and/or falling pattern in hs-cTnT concentrations with at least one value above the sex-specific 99th percentile PLUS at least one of the following clinical criteria: ischemic symptoms, new or presumed new significant ST-T wave changes or new LBBB, development of pathological Q waves, imaging evidence of new loss of viable myocardium or new regional wall motion abnormality, or identification of intracoronary atherothrombosis or an acute angiographic culprit on coronary angiography. In appropriate low-risk patients with a non-ischemic electrocardiogram without active chest pain with a symptom onset >3-hours without recurrence, a single initial hs-cTnT<6 ng/L identifies patient with a very low risk in emergency department patient population. Katie Alfaro MD CHEMISTRY [facility] [address] [place] [address], * PROTIME-INR (09/29/2023 12:52 PM INTERNATIONAL SOURCING MANAGER) INR 1.0 <1.3 09/29/2023 1:28 PM INTERNATIONAL SOURCING MANAGER [facility] PROTIME 10.8 10.3 - 12.3 sec 09/29/2023 1:28 PM INTERNATIONAL SOURCING MANAGER [facility] Blood BLOOD SPECIMEN / Unknown Venipuncture / Unknown 09/29/2023 12:52 PM INTERNATIONAL SOURCING MANAGER 09/29/2023 1:08 PM INTERNATIONAL SOURCING MANAGER Narrative [facility] - 09/29/2023 1:28 PM INTERNATIONAL SOURCING MANAGER ?Therapeutic Range 2.0-3.0 for most anticoagulated patients 2.5-3.5 or 4.0 for high risk patients The INR is only used for patients on stable oral anticoagulant therapy. It makes no significant contribution to the diagnosis or treatment of patients whose Protime is prolonged for other reasons. INR results are increased when heparin levels exceed 1.0 U/mL, which corresponds to an aPTT >125 seconds if the patient is on UFH. Katie Alfaro MD HEMATOLOGY Performing Organization Address City/[facility]/ZIP Co de Phone Number [facility] [address] [place] [address], [place] * Hepatic function panel FOR ADD ON (09/29/2023 12:52 PM INTERNATIONAL SOURCING MANAGER) Pathologist [facility] ALBUMIN 4.2 4.0 - 4.9 g/dL 09/29/2023 5:42 PM INTERNATIONAL SOURCING MANAGER [facility] PROTEIN,TOTAL 6.5 6.0 - 8.0 g/dL 09/29/2023 5:42 PM INTERNATIONAL SOURCING MANAGER [facility] BILIRUBIN,TOTAL 0.7 0.0 - 1.2 mg/dL 09/29/2023 5:42 PM INTERNATIONAL SOURCING MANAGER [facility] BILIRUBIN,DIRECT <0.2 0.0 - 0.3 mg/dL 09/29/2023 5:42 PM INTERNATIONAL SOURCING MANAGER [facility] BILIRUBIN,INDIRE CT 09/29/2023 5:42 PM INTERNATIONAL SOURCING MANAGER [facility] Comment:Unable to calculate, Direct Bili <0.2 ALK PHOSPHATASE 68 40 - 129 IU/L 09/29/2023 5:42 PM INTERNATIONAL SOURCING MANAGER [facility] ALT (SGPT) 27 10 - 50 IU/L 09/29/2023 5:42 PM INTERNATIONAL SOURCING MANAGER [facility] AST (SGOT) 29 10 - 50 IU/L 09/29/2023 5:42 PM INTERNATIONAL SOURCING MANAGER [facility] Blood BLOOD SPECIMEN / Unknown Venipuncture / Unknown 09/29/2023 12:52 PM INTERNATIONAL SOURCING MANAGER 09/29/2023 1:08 PM INTERNATIONAL SOURCING MANAGER Patricia Haney MD CHEMISTRY Performing Organization Address City/[facility]/ZIP Co de Phone Number [facility] [address] [place] [address], [place] * SCAN-OPERATIVE/PROCEDURE REPORT (09/29/2023 12:00 AM INTERNATIONAL SOURCING MANAGER) Narrative 09/29/2023 12:00 AM INTERNATIONAL SOURCING MANAGER Ordered by an unspecified provider. Other Clinical Staff OTHER from Last 3 Months Advance Directives Latest Code Status on File Code Status Date Activated Date Inactivated Comments Full Code 09/29/2023 1:00 PM 09/30/2023 4:52 PM Question Answer Comments Code Status Discussion: Reviewed Preferences Code Status History Code Status Date Activated Date Inactivated Comments Full Code 11/29/2016 9:23 AM 11/30/2016 5:28 PM Full Code 07/16/2016 7:10 AM 07/17/2016 12:10 PM Care Teams Weight Reduction Specialist Relationship Specialty Start Date End Date Clinic, No Pcp Or . PCP - General 12/01/19
== END 2023-10-10 10:02 | disposition home or self-care (01) ==
LOC: FBOREF 10:02
PROVIDERS: Visit Provider Family Medicine
DX: I21.4 Non-ST elevation (NSTEMI) myocardial infarction (principal); I10 Essential (primary) hypertension
CPT/HCPCS: 80048

== ENCOUNTER 2023-11-04 14:16 | Outpatient (CLI) | payer BC, SELFPAY ==
--- OUTSIDE RECORDS SUMMARY | 2023-11-07 08:19 | XMS_ITS | Clinical Summary ---
Author Name Unknown Organization [employer] [facility] Address [place], [place] [address] Care Team Providers Care Swing Type Lathe Operator Name Role Phone Rick Gayle MD Primary Care Provider + Allergies No known active allergies Medications Medication [...] type, unspecified whether angina present, unspecified whether false pass or transplanted heart Chew 1 Tablet (81 mg) by mouth once daily with a meal. 90 Tablet 0 10/01/2023 Active atorvastatin (LIPITOR) 80 mg tabletIndications: Coronary artery disease, unspecified vessel or lesion type, unspecified whether angina present, unspecified whether false pass or transplanted heart Take 1 Tablet (80 mg) by mouth at bedtime. 90 Tablet 0 09/30/2023 Active losartan (COZAAR) 25 mg tabletIndications: Coronary artery disease, unspecified vessel or lesion type, unspecified whether angina present, unspecified whether false pass or transplanted heart Take 1 Tablet (25 mg) by mouth once daily. 90 Tablet 0 10/01/2023 Active metoprolol tartrate (LOPRESSOR) 25 mg tabletIndications: Coronary artery disease, unspecified vessel or lesion type, unspecified whether angina present, unspecified whether false pass or transplanted heart Take 1 Tablet (25 mg) by mouth two times daily. 180 Tablet 0 09/30/2023 Active ticagrelor (BRILINTA) 90 mg tabletIndications: Coronary artery disease, unspecified vessel or lesion type, unspecified whether angina present, unspecified whether false pass or transplanted heart Take 1 Tablet (90 [...] Encounters Date Type Department Care Team Description 10/11/2023 9:15 AM UTILITY DIVISION PROJECT MANAGER - 10/11/2023 11:59 PM UTILITY DIVISION PROJECT MANAGER Hospital Encounter [facility] [address] [place] [address] Stacey Garcia, FISHING HAND NSTEMI (non-ST elevated myocardial infarction) (HC) 10/11/2023 Travel 09/29/2023 12:17 PM UTILITY DIVISION PROJECT MANAGER - 09/30/2023 2:45 PM UTILITY DIVISION PROJECT MANAGER Hospital Encounter [facility] [address] [place] [address] Katie Alfaro MD Holen, Preet Jackson MD [facility] [place] [place] Hospitalists Of NSTEMI (non-ST elevated myocardial infarction) (HC) (Primary Dx); Coronary artery disease, unspecified vessel or lesion type, unspecified whether angina present, unspecified whether false pass or transplanted heart; S/P drug eluting coronary stent placement Discharge Disposition: Home Self Care 09/29/2023 Telephone [facility] [address] [place] [phone] Melissa Reina MD from Last 3 Months [...] Types Packs/Day Years Used Date Smoking Tobacco: Every Day Cigarettes 1 31.1 Started: 09/26/1992 Smokeless Tobacco: Never Tobacco Cessation:Ready to Q uit: Yes; Counseling Given: Yes Alcohol Use Standard Drinks/Week Comments Yes 16 (1 standard drink = 0.6 oz pu [...] Comments Blood Pressure 130/73 09/30/2023 12:15 PM UTILITY DIVISION PROJECT MANAGER Pulse 62 09/30/2023 12:15 PM UTILITY DIVISION PROJECT MANAGER Temperature 36.6 ??C (97.8 ??F) 09/30/2023 8:42 AM CS T Respiratory Rate 18 09/30/2023 8:42 AM UTILITY DIVISION PROJECT MANAGER Oxygen Saturation 97% 09/30/2023 8:42 AM UTILITY DIVISION PROJECT MANAGER Inhaled Oxygen Concentration - - Weight 106.6 kg (235 lb) 09/29/2023 12:33 PM UTILITY DIVISION PROJECT MANAGER Height 180.3 cm (5' 11) 09/29/2023 12:33 PM UTILITY DIVISION PROJECT MANAGER Body Mass Index 32.78 09/29/2023 12:33 PM UTILITY DIVISION PROJECT MANAGER Plan of Treatment Health Maintenance Due Date Last Done Comments [...] through age 75 2023 COVID-19 vaccine series (2022- season) 2023 08/26/2021, 01/09/2021, 12/12/2020 Influenza for age 9-49 05/27/2023 08/17/2017, 2003 Lipids for age 45-75 09/30/2028 09/30/2023, 12/12/19 10 Tdap Completed 12/11/2009 Goals Goal Patient Goal Type Associated Problems Recent Progress Patient-Stated? Author BLOOD PRESSURE - MAINTAINS BP less than 140/90 Blood Pressure Rick Mckeon MD Procedures Procedure Name Priority Date/Time Associated Diagnosis Comments SCAN-CARDIAC REHABILITATION 10/11/2023 10:27 AM UTILITY DIVISION PROJECT MANAGER SCAN-CARDIAC REHABILITATION 10/11/2023 10:27 AM UTILITY DIVISION PROJECT MANAGER SCAN CORRESP-EKG RESULTS 10/06/2023 5:53 PM UTILITY DIVISION PROJECT MANAGER EKG 12 LEAD Today 09/30/2023 9:55 AM UTILITY DIVISION PROJECT MANAGER SCAN-CARDIAC STRIP 09/30/2023 9: 30 AM UTILITY DIVISION PROJECT MANAGER ECHO TTE COMPLETE W CONTRAST Routine 09/30/2023 9:28 AM UTILITY DIVISION PROJECT MANAGER TROPONIN T (HS) ONE TIME Early AM 09/30/2023 5:58 AM UTILITY DIVISION PROJECT MANAGER LIPID PANEL Early AM 09/30/2023 5:58 AM UTILITY DIVISION PROJECT MANAGER BASIC METABOLIC PANEL Early AM 09/30/2023 5:58 AM UTILITY DIVISION PROJECT MANAGER CBC W PLT NO DIFF Early AM 09/30/2023 5:5 8 AM UTILITY DIVISION PROJECT MANAGER SCAN-CARDIAC STRIP 09/30/2023 12 :46 AM UTILITY DIVISION PROJECT MANAGER APTT Timed 09/29/2023 7:17 PM UTILITY DIVISION PROJECT MANAGER SCAN-CARDIAC STRIP 09/29/2023 6: 09 PM UTILITY DIVISION PROJECT MANAGER HEMOGLOBIN A1C MONSERRAT 09/29/2023 5:20 PM UTILITY DIVISION PROJECT MANAGER TROPONIN T (HS) ONE TIME Timed 09/29/2023 5:20 PM UTILITY DIVISION PROJECT MANAGER HCHG ACTIVATED CLOTTING TM CV Timed 09/29/2023 3:30 PM UTILITY DIVISION PROJECT MANAGER HCHG ACTIVATED CLOTTING TM CV Timed 09/29/2023 3:18 PM UTILITY DIVISION PROJECT MANAGER HCHG ACTIVATED CLOTTING TM CV Timed 09/29/2023 3:06 PM UTILITY DIVISION PROJECT MANAGER HCHG ACTIVATED CLOTTING TM CV Timed 09/29/2023 2:55 PM UTILITY DIVISION PROJECT MANAGER CVL CORONARY ANGIOGRAM POSS PCI Routine 09/29/2023 2:51 PM UTILITY DIVISION PROJECT MANAGER XR CHEST 1 VIEW PORTABLE Today 09/29/2023 1:23 PM UTILITY DIVISION PROJECT MANAGER HEMOGLOBIN A1C SCREENING MONSERRAT 09/29/2023 1:01 PM UTILITY DIVISION PROJECT MANAGER CBC W PLT NO DIFF STAT 09/29/2023 1:0 1 PM UTILITY DIVISION PROJECT MANAGER HEPATIC FUNCTION PANEL MONSERRAT 12:52 PM UTILITY DIVISION PROJECT MANAGER BASIC METABOLIC PANEL MONSERRAT 09/29/2023 12:52 PM UTILITY DIVISION PROJECT MANAGER PROTIME-INR STAT 09/29/2023 12:52 PM UTILITY DIVISION PROJECT MANAGER APTT STAT 09/29/2023 12:52 PM UTILITY DIVISION PROJECT MANAGER TROPONIN T (HS) ACUTE W/2HR REFLEX STAT 09/29/2023 12:52 PM UTILITY DIVISION PROJECT MANAGER EKG 12 LEAD STAT 09/29/2023 12:40 PM UTILITY DIVISION PROJECT MANAGER SCAN-OPERATIVE/PROCEDUR E REPORT 09/29/2023 12:00 AM UTILITY DIVISION PROJECT MANAGER from Last 3 Months Results * SCAN-CARDIAC REHABILITATION (10/11/2023 10:27 AM UTILITY DIVISION PROJECT MANAGER) Only the most recent of2 resultswithin the time period is included. Scanner OTHER * SCAN CORRESP-EKG RESULTS (10/06/2023 5:53 PM UTILITY DIVISION PROJECT MANAGER) Narrative 10/06/2023 5:53 PM UTILITY DIVISION PROJECT MANAGER Ordered by an unspecified provider. Other Clinical Staff OTHER * ECG TODAY (09/30/2023 9:55 AM UTILITY DIVISION PROJECT MANAGER) Only the most recent of2 resultswithin [...] NOW QTc 389 ms BEYOND NOW P [place] Laird degrees BEYOND NOW R [place]aird 80 degrees BEYOND NOW T [place] Laird 60 degrees BEYOND NOW 09/30/2023 9:55 AM UTILITY DIVISION PROJECT MANAGER 09/30/2023 4:44 PM UTILITY DIVISION PROJECT MANAGER Patricia Haney MD EKG ORD BEYOND NOW [place], [place] * SCAN-CARDIAC STRIP (09/30/2023 9:30 AM UTILITY DIVISION PROJECT MANAGER) Scanner OTHER * ECHO TTE COMPLETE W CONTRAST (09/30/2023 9:28 AM UTILITY DIVISION PROJECT MANAGER) AORTIC VALVE MEAN PG 6 mmHg EJECTION FRACTION 52 % LVEDD 5.4 cm EJECTION FRACTION 45 - 50% Anatomical Region Laterality Modality Ultrasound 09/30/2023 8:03 AM UTILITY DIVISION PROJECT MANAGER Narrative 09/30/2023 1:29 PM UTILITY DIVISION PROJECT MANAGER ECHOCARDIOGRAM MARYA BARTON ? Accession#: ?? [id number] : ?1980 43 years Study Date: ?? 09/30/2023 8:03:18 AM Gender: M ?BP: ? 138/85 mmHg Height: 180.34 cm ?BSA: ?2.26 m? ? ? Weight: 106.60 kg ?Tech: ? LFM ? Referring MD: PATRICIA HANEY Site: ? [facility] Reading Location: [facility] Patient Location: Inpatient. Procedure: 2D w/ Contrast, Spectral Doppler and Color Doppler. Indication for study: [place] Cardiac Rhythm: Regular.Study quality: Fair. Final Impressions: [...] documentation: 2 ml diluted Definity, lot #[id number], [facility]# [id number] was administered peripherally to enhance visualization of all left ventricular segments. . This study was interpreted by an [facility] accredited facility. ??Final ?? Procedure Note Zoraida Glaser, [facility] - 09/30/2023 ECHOCARDIOGRAM MARYA BARTON : 1980 43 years Study Date: 09/30/2023 8:03:18 AM Gender: M BP: 138/85 mmHg Height: 180.34 cm BSA: 2.26 m? ? ? Weight: 106.60 kg Tech: [facility] Referring MD: PATRICIA HANEY Site: [facility] Reading Location: [facility] Patient Location: Inpatient. Procedure: 2D w/ Contrast, Spectral Doppler and Color Doppler. Indication for study: [place] Cardiac Rhythm: Regular.Study quality: Fair. Final Impressions: [...] documentation: 2 ml diluted Definity, lot #[id number], [facility]#[id number] was administered peripherally to enhance visualization of allleft ventricular segments. . This study was interpreted by an [facility] accredited facility. Final Patricia Haney MD ECHO ORD * (ABNORMAL) TROPONIN T (HS) ONE TIME (09/30/2023 5:58 AM UTILITY DIVISION PROJECT MANAGER) Only the most recent of2 resultswithin the time period is included. TROPONIN T HS 420(H) 6-15 ng/L ng/L 09/30/2023 6:50 AM UTILITY DIVISION PROJECT MANAGER [facility] Blood BLOOD SPECIMEN / Unknown Venipuncture / Unknown 09/30/2023 5:58 AM UTILITY DIVISION PROJECT MANAGER 09/30/2023 6:04 AM UTILITY DIVISION PROJECT MANAGER [facility] - 09/30/2023 6:50 AM UTILITY DIVISION PROJECT MANAGER hs-cTnT (Elecsys Troponin T Gen 5) [...] department patient population. Patricia Haney MD CHEMISTRY [facility] [address] [place] [address], * (ABNORMAL) CBC W PLT NO DIFF (09/30/2023 5:58 AM UTILITY DIVISION PROJECT MANAGER) Only the most recent of2 resultswithin the time period is included. WHITE BLOOD COUNT 15.3(H) 4.5 - 11.0 thou/cu mm 09/30/2023 6:08 AM [facility] RED BLOOD COUNT 4.46 4.30 - 5.90 mil/cu mm 09/30/2023 6:08 AM [facility]ORY HEMOGLOBIN 13.7 13.5 - 17.5 g/dL 09/30/2023 6:08 AM [facility] HEMATOCRIT 40.5 37.0 - 53.0 % 09/30/2023 6:08 AM [facility] MCV 91 80 - 100 fL 09/30/2023 6:08 AM [facility] MCH 30.7 26.0 - 34.0 pg 09/30/2023 6:08 AM [facility] MCHC 33.8 32.0 - 36.0 g/dL 09/30/2023 6:08 AM [facility] RDW 12.7 11.5 - 15.5 % 09/30/2023 6:08 AM [facility] PLATELET COUNT 148 140 - 440 thou/cu mm 09/30/2023 6:08 AM UTILITY DIVISION PROJECT MANAGER [facility] MPV 10.3 6.5 - 11.0 fL 09/30/2023 6:08 AM UTILITY DIVISION PROJECT MANAGER [facility] NRBC 0.0 % 09/30/2023 6:08 AM UTILITY DIVISION PROJECT MANAGER [facility] ABS NRBC 0.0 thou /cu mm 09/30/2023 6:08 AM UTILITY DIVISION PROJECT MANAGER [facility] Blood BLOOD SPECIMEN / Unknown Venipuncture / Unknown 09/30/2023 5:58 AM UTILITY DIVISION PROJECT MANAGER 09/30/2023 6:04 AM UTILITY DIVISION PROJECT MANAGER Preet Flynn MD HEMATOLOGY [facility] [address] [place] [address], * Lipid Panel AM (09/30/2023 5:58 AM UTILITY DIVISION PROJECT MANAGER) Pathologist [facility] CHOLESTEROL,TOTAL 189 100 - 199 mg/dL 09/30/2023 6:50 AM UTILITY DIVISION PROJECT MANAGER [facility] Comment: Cholesterol, Total Reference Ranges Desirable <200 mg/dL Borderline 200-239 mg/dL High >=240 mg/dL TRIGLYCERIDES 69 <150 mg/dL 09/30/2023 6:50 AM UTILITY DIVISION PROJECT MANAGER [facility] HDL CHOLESTEROL 53 >40 mg/dL 6:50 AM UTILITY DIVISION PROJECT MANAGER [facility] NON-HDL CHOLESTEROL 136 <145 mg/dl 09/30/2023 6:50 AM UTILITY DIVISION PROJECT MANAGER [facility] CHOL/HDL RATIO 3.57 <4.50 09/30/2023 6:50 AM UTILITY DIVISION PROJECT MANAGER [facility] LDL CHOLESTEROL 122 <=130 mg/dL 09/30/2023 6:50 AM [facility] VLDL CHOLESTEROL 14 <=30 mg/dL 09/30/2023 6:50 AM UTILITY DIVISION PROJECT MANAGER [facility] PROVIDER ORDERED STATUS RANDOM 09/30/2023 6:50 AM UTILITY DIVISION PROJECT MANAGER [facility] Blood BLOOD SPECIMEN / Unknown Venipuncture / Unknown 09/30/2023 5:58 AM UTILITY DIVISION PROJECT MANAGER 09/30/2023 6:04 AM [facility] [[email or web address]] Preet Flynn MD CHEMISTRY [facility] [address] [place] [address], * (ABNORMAL) BASIC METABOLIC PANEL (09/30/2023 5:58 AM UTILITY DIVISION PROJECT MANAGER) Only the most recent of2 resultswithin the time period is included. SODIUM 141 136 - 145 mmol/L 09/30/2023 6:50 AM [facility] POTASSIUM 4.6 3.5 - 5.1 mmol/L 09/30/2023 6:50 AM [facility] CHLORIDE 106 98 - 107 mmol/L 09/30/2023 6:50 AM [facility] CO2,TOTAL 26 22 - 29 mmol/L 09/30/2023 6:50 AM [facility] ANION GAP 9 5 - 18 09/30/2023 6:50 AM [facility] GLUCOSE 115(H) 70 - 99 mg/dL 09/30/2023 6:50 AM [facility] CALCIUM 8.9 8.6 - 10.0 mg/dL 09/30/2023 6:50 AM [facility] BUN 11 6 - 20 mg/dL 09/30/2023 6:50 AM [facility] CREATININE 0.80 0.70 - 1.20 mg/dL 09/30/2023 6:50 AM [facility] BUN/CREAT RATIO 14 10 - 20 6:50 AM [facility] eGFR >90 >90 mL/min/1.7 3m2 09/30/2023 6:50 AM [facility] Comment:As of 2021, eG FR is calculated by the CKD-EPI creatinine equation without race adjustment. ??eGFR can be influenced by muscle mass, exercise, and diet. ??The reported eGFR is an estimation only and is only applicable if the renal function is stable. Blood BLOOD SPECIMEN / Unknown Venipuncture / Unknown 09/30/2023 5:58 AM UTILITY DIVISION PROJECT MANAGER 09/30/2023 6:04 AM UTILITY DIVISION PROJECT MANAGER Preet Flynn MD CHEMISTRY Performing Organization Address [facility] Co de Phone Number [facility] [address] [place] [address], * SCAN-CARDIAC STRIP (09/30/2023 12:46 AM UTILITY DIVISION PROJECT MANAGER) Scanner OTHER * APTT (09/29/2023 7:17 PM UTILITY DIVISION PROJECT MANAGER) Only the most recent of2 resultswithin the time period is included. APTT 36 29 - 36 sec 09/29/2023 8:09 PM UTILITY DIVISION PROJECT MANAGER [facility] Blood BLOOD SPECIMEN / Unknown Butterfly / Unknown 09/29/2023 7:17 PM UTILITY DIVISION PROJECT MANAGER 09/29/2023 7:45 PM UTILITY DIVISION PROJECT MANAGER Narrative [facility] - 09/29/2023 8:09 PM UTILITY DIVISION PROJECT MANAGER Therapeutic Range: 57-100 seconds Katie Alfaro MD HEMATOLOGY Performing Organization Address [facility] Co de Phone Number [facility] [address] [place] [address], * SCAN-CARDIAC STRIP (09/29/2023 6:09 PM UTILITY DIVISION PROJECT MANAGER) Scanner OTHER * Screening hemoglobin A1c AM (order if not done w/in 3 mos) (09/29/2023 5:20 PM UTILITY DIVISION PROJECT MANAGER) HEMOGLOBIN A1C MONITORING (POCT) 5.8 <=6.4 % 09/29/2023 7:56 PM UTILITY DIVISION PROJECT MANAGER [facility] Blood BLOOD SPECIMEN / Unknown Butterfly / Unknown 09/29/2023 5:20 PM UTILITY DIVISION PROJECT MANAGER 09/29/2023 5:34 PM UTILITY DIVISION PROJECT MANAGER Narrative [facility] - 09/29/2023 7:56 PM UTILITY DIVISION PROJECT MANAGER ? (<=6.9%) ? Indicates good control [...] Patricia Haney MD CHEMISTRY Performing Organization Address [facility] de Phone Number [facility] [address] [place] [address], * (ABNORMAL) ACTIVATED CLOTTING TIME [id number] ACT (09/29/2023 3:30 PM UTILITY DIVISION PROJECT MANAGER) Only the most recent of4 resultswithin the time period is included. ACTIVATED CLOTTING TIME, POCT 271(H) 74 - 125 sec 09/29/2023 3:53 PM UTILITY DIVISION PROJECT MANAGER [facility] Blood BLOOD SPECIMEN / Unknown 09/29/2023 3:30 PM UTILITY DIVISION PROJECT MANAGER 09/29/2023 3:53 PM UTILITY DIVISION PROJECT MANAGER Katie Alfaro MD HEMATOLOGY Performing Organization Address [facility] Co de Phone Number [facility] [address] [place] [address], * CVL CORONARY ANGIOGRAM POSS PCI (09/29/2023 2:51 PM UTILITY DIVISION PROJECT MANAGER) Anatomical Region Laterality Modality Other 09/29/2023 2:51 PM UTILITY DIVISION PROJECT MANAGER Narrative Transcriptions Nate Aparicio MD - 09/29/2023 3:39 PM CST [facility] Cardiac Catheterization Report Name: MARYA BARTON Event Date: 09/29/2023 14:51 Veronica ID #: [id number] NELA #: [id number] Diagnostic Physician: NATE APARICIO [facility] Interventional Physician: NATE APARICIO [facility] Referring Physician: [place] Date: 1980 Gender: Male [...] Proximal LAD, post stenosis 0% Consent & [place] Protocol The risks, benefits, and alternatives of the procedure were discussed withthe patient and written informed consent was obtained. [place] protocol was followed. TIME OUT conducted just prior tostarting procedure confirmed patient identity, site/side, procedure,patient position, and availability of correct equipment and implants (ifapplicable). Staff Name Title NATE APARICIO Diagnostic Research Consultant Caridad Bosch Fellow Charo Wynne RN, Lauren RN Rosalee Quesada CVT Monitor Patricequist, Dandy CVT Monitor Uche Green CVT Deputy Register Of Deeds Dana Anne CVT Scrub Mary, Renzo CVT Deputy Register Of Deeds Radha Summers RT(R) Deputy Register Of Deeds Yasmine Da Silva RN Nurse NATE APARICIO Legal Support Manager Procedures ? Ultrasound Guided Vascular Access ? [...] 1 Proximal LAD Balloon BLLN EUPHORA RX [id number] 1 Proximal LAD Balloon BLLN EUPHORA NC RX 4.5MM X 12MM 1 Proximal LAD Drug Eluting Stent JAVIER CONY Hardeman RX [id number] 1 Proximal LAD IVUS CATH IVUS [facility] [place] [facility] Procedure Details Estimated Blood Loss: < [...] Given By 14:51 Fentanyl 50 mcg IV HeardNate Mellina RN 14:51 Versed 1 mg IV HeardNate Mellina RN 14:52 1% Lidocaine 20 ml Subcut Nate Aparicio Muhammad Saad 14:56 Nitroglycerin 200 mcg IC Nate Aparicio Michelle CVT 14:59 Heparin 5000 units IV HeardNate Mellina RN 15:03 Ticagrelor/Brilinta 180 mg PO HeardNate Mellina RN 15:10 Heparin 3000 units IV HeardNate Mellina RN 15:16 Nitroglycerin 200 mcg IC HeardNate Michelle CVT 15:19 Fentanyl 25 mcg IV HeardNate Mellina RN 15:19 Versed 0.5 mg IV HeardNate Mellina RN 15:23 Heparin 2000 units IV HeardNate Mellina RN 15:25 Hydralazine 10 mg IV HeardNate Mellina RN 15:27 Fentanyl 25 mcg IV HeardNate Mellina RN 15:27 Versed 0.5 mg IV Nate Aparicio Vanessa RT(R) I personally monitored the patient?s conscious sedation during theprocedure. Conscious sedation starts with the first sedation medication dose ofFentanyl or Versed and ends when the procedure is completed, the patientis stable for recovery status, and the physician or other qualified healthcare professional providing the sedation ends personal [id number] time with the patient. The medications listed above were verbally ordered by me and read back tome as documented above. Refer to the procedure log report for additional case details. electronically signed on 09/29/2023 3:39:58 PM with status of Final Nate Aparicio MD [facility] [address] [place] [address] (p) [phone](f) Provider Referring CV IMAGING * XR Chest Portable 1 View (09/29/2023 1:23 PM UTILITY DIVISION PROJECT MANAGER) Anatomical Region Laterality Modality HEART, THORAX, CHEST Digital Rad iography 09/29/2023 5:16 PM UTILITY DIVISION PROJECT MANAGER Impressions 09/29/2023 5:16 PM UTILITY DIVISION PROJECT MANAGER The lungs are clear. No signs of pleural fluid or pneumothorax. Normal heart size and vascular pattern. Overlying shift boss leads are present Dictated by Abner Bansal MD @ Sep ??4 2023 ??5:16PM (Electronically Signed) Pediatric [facility] Body Radiology [email or web address] ?? Narrative 09/29/2023 5:16 PM UTILITY DIVISION PROJECT MANAGER For Patients: ??As a result of [...] Normal heart size and vascular pattern. Overlying shift boss leads are present Dictated by Abner Bansal MD @ Sep 29 2023 5:16PM (Electronically Signed) Pediatric and Body Radiology [email or web address] Preet [email or web address] MD GENERAL IMAGING * Screening hemoglobin A1c FOR ADD ON (09/29/2023 1:01 PM UTILITY DIVISION PROJECT MANAGER) [facility] HEMOGLOBIN A1C SCREENING 5.8 <=6.4 % 09/29/2023 3:33 PM UTILITY DIVISION PROJECT MANAGER [facility] Blood BLOOD SPECIMEN / Unknown Venipuncture / Unknown 09/29/2023 1:01 PM UTILITY DIVISION PROJECT MANAGER 09/29/2023 1:08 PM UTILITY DIVISION PROJECT MANAGER Narrative [facility] - 09/29/2023 3:33 PM UTILITY DIVISION PROJECT MANAGER ? (<5.7%) ?Normal ? (5.7% to 6.4%) ? Indicates prediabetes ? (>=6.5%) ? Confirms diabetes Falsely low levels may be seen with: Recent Transfusion, Recent Significant Blood Loss, Hemolytic Diseases, or Falsely elevated levels may be seen with: Untreated Anemias, Splenectomy Preet Flynn MD CHEMISTRY [facility] [address] [place], [place] [address] * (ABNORMAL) TROPONIN T (HS) ACUTE W/2HR REFLEX (09/29/2023 12:52 PM UTILITY DIVISION PROJECT MANAGER) [facility] TROPONIN T HS 169(H) 6-15 ng/L ng/L 09/29/2023 1:44 PM UTILITY DIVISION PROJECT MANAGER [facility] Blood BLOOD SPECIMEN / Unknown Venipuncture / Unknown 09/29/2023 12:52 PM UTILITY DIVISION PROJECT MANAGER 09/29/2023 1:08 PM UTILITY DIVISION PROJECT MANAGER Narrative [facility] - 09/29/2023 1:44 PM UTILITY DIVISION PROJECT MANAGER hs-cTnT (Elecsys Troponin T Gen 5) [...] department patient population. Katie Alfaro MD [facility] [address] [place] [address], * PROTIME-INR (09/29/2023 12:52 PM UTILITY DIVISION PROJECT MANAGER) INR 1.0 <1.3 09/29/2023 1:28 PM UTILITY DIVISION PROJECT MANAGER [facility] PROTIME 10.8 10.3 - 12.3 sec 09/29/2023 1:28 PM [facility] Blood BLOOD SPECIMEN / Unknown Venipuncture / Unknown 09/29/2023 12:52 PM UTILITY DIVISION PROJECT MANAGER 09/29/2023 1:08 PM UTILITY DIVISION PROJECT MANAGER Narrative [facility] - 09/29/2023 1:28 PM UTILITY DIVISION PROJECT MANAGER ?Therapeutic Range 2.0-3.0 for most anticoagulated [...] is on [facility]. Katie Alfaro MD HEMATOLOGY [facility] [address] [place] [address], * Hepatic function panel FOR ADD ON (09/29/2023 12:52 PM UTILITY DIVISION PROJECT MANAGER) ALBUMIN 4.2 4.0 - 4.9 g/dL 09/29/2023 5:42 PM [facility] PROTEIN,TOTAL 6.5 6.0 - 8.0 g/dL 09/29/2023 5:42 PM [facility] BILIRUBIN,TOTAL 0.7 0.0 - 1.2 mg/dL 09/29/2023 5:42 PM [facility] BILIRUBIN,DIRECT <0.2 0.0 - 0.3 mg/dL 09/29/2023 5:42 PM [facility] BILIRUBIN,INDIRE CT 09/29/2023 5:42 PM [facility] Comment:Unable to calculate, Direct Bili <0.2 ALK PHOSPHATASE 68 40 - 129 IU/L 09/29/2023 5:42 PM [facility] ALT (SGPT) 27 10 - 50 IU/L 09/29/2023 5:42 PM UTILITY DIVISION PROJECT MANAGER [facility] AST (SGOT) 29 10 - 50 IU/L 09/29/2023 5:42 PM UTILITY DIVISION PROJECT MANAGER [facility] Blood BLOOD SPECIMEN / Unknown Venipuncture / Unknown 09/29/2023 12:52 PM UTILITY DIVISION PROJECT MANAGER 09/29/2023 1:08 PM UTILITY DIVISION PROJECT MANAGER Patricia Haney MD CHEMISTRY [facility] [address] [place] [address], * SCAN-OPERATIVE/PROCEDURE REPORT (09/29/2023 12:00 AM UTILITY DIVISION PROJECT MANAGER) Narrative 09/29/2023 12:00 AM UTILITY DIVISION PROJECT MANAGER Ordered by an unspecified provider. Other [...] 7:10 AM 07/17/2016 12:10 PM Care Teams Swing Type Lathe Operator Relationship Specialty Start Date End Date Rick Gayle MD [address] [place] [address] PCP - General Family Practice 10/10/23
== END 2023-11-04 14:17 | disposition home or self-care (01) ==
LOC: NFLDREF 11-07 08:14
PROVIDERS: PCP Family Medicine; Referring Provider Family Medicine; Visit Provider Family Medicine
DX: J02.9 Acute pharyngitis, unspecified (principal)
CPT/HCPCS: 87651

== ENCOUNTER 2023-12-12 09:15 | Outpatient (CLI) | payer BC, SELFPAY | END 2023-12-12 09:16 | disposition home or self-care (01) | PROVIDERS: PCP Family Medicine; Visit Provider Family Medicine | DX: E78.2 Mixed hyperlipidemia (principal); I10 Essential (primary) hypertension | CPT/HCPCS: 80048; 80061; 84460 ==

== ENCOUNTER 2024-12-05 09:16 | Outpatient (CLI) | payer BC, SELFPAY | END 2024-12-05 09:17 | disposition home or self-care (01) | PROVIDERS: PCP Family Medicine; Visit Provider Family Medicine | DX: I10 Essential (primary) hypertension (principal); E78.2 Mixed hyperlipidemia | CPT/HCPCS: 80048; 80061; 84460 ==